=== PATIENT | female | born 1995 | race Caucasian/White ===

== ENCOUNTER 2016-10-11 16:54 | Emergency (ER) | payer MEDICAID ==
[~2016-10-11] VITALS: Ht 144.8 cm; Wt 54.4 kg
[~2016-10-11 16:54] MED LIST: PNV91TAB3 PO; PREN-51 PO
--- OUTSIDE RECORDS SUMMARY | 2016-10-11 17:00 | XMS REPORT | Continuity of Care Document ---
Author Author [facility] Organization [facility] Address Unknown Phone Unavailable Care Team Providers Care Sorority Supervisor Name Role Phone NO, LOCAL PHYSICIAN PCP Unavailable Insurance Providers Payer Name Policy Number Subscriber Name Relationship [facility] [employer] [id number] Luís Richter 18 Self / Same As Patient Advance Directives Directive Response Recorded Date/Time Advance Directives No 01/08/16 12:10pm Health Care Power of Concrete Pointer No 01/08/16 12:10pm Organ Donor Yes 01/08/16 12:10pm Resuscitation Status Full Code 01/08/16 12:10pm Chief Complaint and Reason for Visit Chief Complaint SEVERE MYALGIA LEUKOCYTOSIS RASH VOMITING FREQUENT Reason for Visit Leukocytosis Rash Vomiting diffuse myalgia Problems Active Problems Medical Problem Onset Date Status Leukocytosis Unknown Acute Unknown Acute Rash Unknown Acute Vomiting Unknown Acute diffuse myalgia Unknown Acute Medications Current Home Medications Medication Dose Units Route Directions Days/Qty Instructions Start Date Pnv95/Ferrous Fumarate/Fa 1 Each 1 Tab Oral Daily 01/08/16 Past Home Medications Medication Directions Ordered Status Vit #76/Iron,Carb/Fa 1 Each Tablet, 1 Each Oral Daily 01/08/16 Discontinued Social History Social History Problem Response Recorded Date/Time Alcohol Use Denies Use 01/08/2016 12:10pm Recreational Drug Use No 01/08/2016 12:10pm Recent Foreign Travel No 01/08/2016 12:10pm Recent Infectious Disease Exposure No 01/08/2016 12:10pm Hospitalization with Isolation Denies 01/09/2016 3:49pm Smoking Status Never a Smoker 01/08/2016 12:10pm Query Response Start Date Stop Date Smoking Status Never a Smoker Hospital Discharge Instructions Patient Instructions Physician Instructions Plan of Care/Instructions/FU: Increase fluid intake Use Tylenol 650 every 4 hours as needed for pain You may try heat or cold in the area of the pelvis to see if there is any value in pain relief Activity as Tolerated: Yes Goal: Reduction of pain Discharge Diet: No Restrictions Reschedule appointment with Dr. Obi Mack Care Plan Patient Instructions:: Increase fluid intakeUse Tylenol 650 every 4 hours as needed for painYou may try heat or cold in the area of the pelvis to see if there is anyvalue in pain relief Goal:: Reduction of pain Plan of Care Discharge Date 01/09/16 3:30pm Disposition 09 ADMITTED INPATIENT Instructions/Education Provided Dehydration (DC) Leukocytosis (DC) Forms Provided PDI Medical Prescriptions See Medication Section Referrals (Unspecified) - Reason(s) for Referral: follow up with Dr. Mack when discharged Care Plan and Goals See Discharge Instructions Section Functional Status Query Response Date Recorded Patient Orientation Person Place Time Situation Eyes Open January 09, 2016 3:49pm Allergies, Adverse Reactions, Alerts Allergen Type Severity Reaction Status Last Updated Penicillins ([id number]) Allergy Unknown Active 01/08/16 Doxycycline Allergy Unknown Active 01/08/16 Immunizations Name Given Type Hepatitis A Yes Historical Hepatitis B Yes Historical Tetanus Booster (TDap) Less than 5yrs Historical Vital Signs Acute Vital Signs Vital Response Date/Time Temperature (Fahrenheit) 98.2 degrees F (97.6 - 99.5) 01/09/2016 2:00pm Temperature (Calculated Celsius) 36.24625 degrees C (36.4 - 37.5) 01/09/2016 2:00pm Temperature Source Temporal 01/09/2016 2:00pm Pulse Rate (adult) 97 bpm (60 - 90) 01/09/2016 2:00pm Respiratory Rate 16 bpm (12 - 24) 01/09/2016 2:00pm O2 Sat by Pulse Oximetry 99 % (88 - 100) 01/09/2016 2:00pm Blood Pressure 110/58 mm Hg 01/09/2016 2:00pm Blood Pressure Mean 75 mm Hg 01/09/2016 2:00pm Pain Pain Intensity 2 01/09/2016 2:00pm Height (Feet) 4 feet 01/08/2016 12:10pm Height (Inches) 11.00 inches 01/08/2016 12:10pm Height (Calculated Centimeters) 149.920425 cm 01/08/2016 12:10pm Weight (Pounds) 112 pounds 01/08/2016 12:10pm Weight (Ounces) 6.0 oz 01/08/2016 12:10pm Weight (Calculated Grams) 37403.443 gm 01/08/2016 12:10pm Weight (Calculated Kilograms) 50.569241 kilograms 01/08/2016 12:10pm Calculated BMI 22.7 01/08/2016 12:10pm Results Laboratory Results Test Name Result Units Flags Reference Collection Date/Time Result Date/ Time Comments White Blood Count 14.6 10^3/uL H 4.3-11.0 01/09/2016 4:01/09/2016 5: 41am Red Blood Count 3.92 10^6/uL L 4.35-5.85 01/09/2016 4:01/09/2016 5: 41am Hemoglobin 12.2 G/DL 11.5-16.0 01/09/2016 4:01/09/2016 5:41am Hematocrit 35 % 35-52 01/09/2016 4:01/09/2016 5:41am Mean Corpuscular Volume 88 FL 80-99 01/09/2016 4:01/09/2016 5: 41am Mean Corpuscular Hemoglobin 31 PG 25-34 01/09/2016 4:01/09/2016 5: 41am Mean Corpuscular Hemoglobin Concent 35 G/DL 32-36 01/09/2016 4: 5:41am Red Cell Distribution Width 12.1 % 10.0-14.5 01/09/2016 4:2015 5:41am Platelet Count 230 10^3/uL 130-400 01/09/2016 4:01/09/2016 5:41am Mean Platelet Volume 10.0 FL 7.4-10.4 01/09/2016 4:01/09/2016 5: 41am Neutrophils (%) (Auto) 88 % H 42-75 01/09/2016 4:01/09/2016 5:41am Lymphocytes (%) (Auto) 7 % L 12-44 01/09/2016 4:01/09/2016 5:41am Monocytes (%) (Auto) 2 % 0-12 01/09/2016 4:01/09/2016 5:41am Eosinophils (%) (Auto) 3 % 0-10 01/09/2016 4:01/09/2016 5:41am Basophils (%) (Auto) 0 % 0-10 01/09/2016 4:01/09/2016 5:41am Neutrophils # (Auto) 12.8 X 10^3 H 1.8-7.8 01/09/2016 4:01/09/2016 5 :41am Lymphocytes # (Auto) 1.0 X 10^3 1.0-4.0 01/09/2016 4:01/09/2016 5: 41am Monocytes # (Auto) 0.3 X 10^3 0.0-1.0 01/09/2016 4:01/09/2016 5: 41am Eosinophils # (Auto) 0.4 10^3/uL H 0.0-0.3 01/09/2016 4:01/09/2016 5 :41am Basophils # (Auto) 0.0 10^3/uL 0.0-0.1 01/09/2016 4:01/09/2016 5: 41am Neutrophils % (Manual) 88 % 01/08/2016 9:00am 01/08/2016 9:36am Band Neutrophils 10 % 01/08/2016 9:00am 01/08/2016 9:36am Lymphocytes % (Manual) 1 % 01/08/2016 9:00am 01/08/2016 9:36am Monocytes % (Manual) 1 % 01/08/2016 9:00am 01/08/2016 9:36am Eosinophils % (Manual) 0 % 01/08/2016 9:00am 01/08/2016 9:36am Basophils % (Manual) 0 % 01/08/2016 9:00am 01/08/2016 9:36am Blood Morphology Comment NORMAL 01/08/2016 9:00am 01/08/2016 9: 36am Erythrocyte Sedimentation Rate 12 MM/HR 0-20 01/08/2016 9:00am 2015 9:40am Urine Color YELLOW 01/08/2016 8:55am 01/08/2016 9:21am Urine Clarity CLEAR 01/08/2016 8:55am 01/08/2016 9:21am Urine pH 7 5-9 01/08/2016 8:55am 01/08/2016 9:21am Urine Specific [place] 1.010 * 1.016-1.022 01/08/2016 8:55am 2015 9:21am Urine Protein NEGATIVE NEGATIVE 01/08/2016 8:55am 01/08/2016 9:21am Urine Glucose (UA) NEGATIVE NEGATIVE 01/08/2016 8:55am 01/08/2016 9: 21am Urine RBC (Auto) NEGATIVE NEGATIVE 01/08/2016 8:55am 01/08/2016 9: 21am Urine Ketones NEGATIVE NEGATIVE 01/08/2016 8:55am 01/08/2016 9:21am Urine Nitrite NEGATIVE NEGATIVE 01/08/2016 8:55am 01/08/2016 9:21am Urine Bilirubin NEGATIVE NEGATIVE 01/08/2016 8:55am 01/08/2016 9: 21am Urine Urobilinogen NORMAL MG/DL NORMAL 01/08/2016 8:55am 01/08/2016 9: 21am Urine Leukocyte Esterase NEGATIVE NEGATIVE 01/08/2016 8:55am 2015 9:21am Urine RBC NONE /HPF 01/08/2016 8:55am 01/08/2016 9:21am Urine WBC 2-5 /HPF 01/08/2016 8:55am 01/08/2016 9:21am Urine Bacteria NEGATIVE /HPF 01/08/2016 8:55am 01/08/2016 9:21am Urine Squamous Epithelial Cells 2-5 /HPF 01/08/2016 8:55am 2015 9:21am Urine Crystals NONE /LPF 01/08/2016 8:55am 01/08/2016 9:21am Urine Casts NONE /LPF 01/08/2016 8:55am 01/08/2016 9:21am Urine Mucus NEGATIVE /LPF 01/08/2016 8:55am 01/08/2016 9:21am Urine Culture Indicated NO 01/08/2016 8:55am 01/08/2016 9:21am Sodium Level 137 MMOL/L 135-145 01/08/2016 9:00am 01/08/2016 9:59am Potassium Level 3.7 MMOL/L 3.6-5.0 01/08/2016 9:00am 01/08/2016 9:59am Chloride Level 101 MMOL/L 98-107 01/08/2016 9:00am 01/08/2016 9:59am Carbon Dioxide Level 23 MMOL/L 21-32 01/08/2016 9:00am 01/08/2016 9: 59am Anion Gap 13 MMOL/L 5-14 01/08/2016 9:00am 01/08/2016 9:59am Blood Urea Nitrogen 4 MG/DL L 7-18 01/08/2016 9:00am 01/08/2016 9:59am Creatinine 0.64 MG/DL 0.60-1.30 01/08/2016 9:00am 01/08/2016 9:59am BUN/Creatinine Ratio 6 01/08/2016 9:00am 01/08/2016 9:59am Estimat Glomerular Filtration Rate > 60 01/08/2016 9:00am 2015 9:59am GFR INTERPRETIVE DATA UNITS FOR ESTIMATED GFR (eGFR): mL/min/1.73 M2 REFERENCE RANGE FOR ESTIMATED GFR (eGFR) eGFR NORMAL eGFR >60 MODERATELY DECREASED eGFR 30-59 SEVERLY DECREASED eGFR 15-29 KIDNEY FAILURE <15 (OR DIALYSIS) Glucose Level 131 MG/DL H 70-105 01/08/2016 9:00am 01/08/2016 9:59am Calcium Level 9.5 MG/DL 8.5-10.1 01/08/2016 9:00am 01/08/2016 9:59am Magnesium Level 2.0 MG/DL 1.8-2.4 01/08/2016 9:00am 01/08/2016 9:59am Total Bilirubin 0.6 MG/DL 0.1-1.0 01/08/2016 9:00am 01/08/2016 9:59am Alkaline Phosphatase 93 U/L 40-136 01/08/2016 9:00am 01/08/2016 9:59am Aspartate Amino Transf (AST/SGOT) 14 U/L 5-34 01/08/2016 9:00am 2015 9:59am Alanine Aminotransferase (ALT/SGPT) 13 U/L 0-55 01/08/2016 9:00am 01/07 9:59am Total Creatine Kinase 21 U/L L 29-168 01/09/2016 4:25am 01/09/2016 5: 43am Total Protein 7.3 G/DL 6.4-8.2 01/08/2016 9:00am 01/08/2016 9:59am Albumin 4.4 G/DL 3.2-4.5 01/08/2016 9:00am 01/08/2016 9:59am C-Reactive Protein High Sensitivity 9.03 MG/DL H 0.00-0.50 01/08/2016 9: 00am 01/08/2016 9:59am Group A Streptococcus Screen NEGATIVE NEGATIVE 01/08/2016 8:45am 9:00am Acetaminophen Screen POSITIVE * NEGATIVE 01/08/2016 8:55am 01/08/2016 10:42am APAP=ACETAMINOPHEN/PARACETAMOL [place] Antibody <1:20 01/08/2016 9:00am 01/09/2016 8:53am Interpretive criteria: <1:20 Negative 1:20 - 1:80 Equivocal >or=1:160 Positive Additional interpretive data can be seen online at: [email or web address] Enter test number: [id number] Test performed at [facility], [place]# [id number] Microbiology Results Procedure Source Result Collection Date/Time Result Date/Time Throat Culture Throat No Beta Strep isolated 01/08/2016 8:45am 01/09/2016 8:41am Blood Culture Peripheral, Lt Ac No growth 01/08/2016 9:35am 01/09/2016 1: 16pm Blood Culture Peripheral, Rt Ac No growth 01/08/2016 10:05am 01/09/2016 1: 16pm Procedures No known history of procedures. Encounters Encounter Location Arrival/Admit Date Discharge/Depart Date Attending Provider Discharged Inpatient [facility] 01/08/16 11:32am 3:30pm ZONIA CAVAZOS MD Recent Diagnosis Leukocytosis Rash Vomiting diffuse myalgia
[2016-10-11] MEDS ORDERED: SERT25TA PO (17:40)
--- NOTE | 2016-10-11 18:10 | ED GI ---
General Chief Complaint: Abdominal/GI Problems Stated Complaint: RECTUM BLEEDING/V/D Nursing Triage Note: pt c/o abd pain with diarrhea starting yesterday. vomiting with blood in stools today. she was seen [facility] this morning et dx gi virus. did not fill zofran. awoke feeling worse, so she came to our er. reports pain radiates to back. Sepsis Screen: No Definite Risk Source of Information: Patient Exam Limitations: No Limitations History of Present Illness Time Seen By Provider: 18:10 Initial Comments 20-year-old female patient presents to the emergency department complains of generalized abdominal pain and diarrhea beginning yesterday. Patient reports approximately 10 watery stools daily with last stool having blood in it. Patient was seen at [facility] emergency department this a.m. and given Zofran for a viral gastroenteritis. Patient states she has not filled the Zofran because "I didn't feel like they were taking me seriously." Patient reports taking a nap this afternoon and waking with vomiting. Came directly to the emergency department. Reports pain now radiates from the abdomen to the bilateral low back. Reports had similar symptoms approximately one week ago. Patient reports giving at the beginning of August and stopped breast feeding at the end of August. Has not had a period yet. Timing/Duration: 12-24 Hours, Getting Worse Severity/Quality: Aching, Cramping Location: Generalized Abdomen Radiation: Back Activities at Onset: None Modifying Factors: Worsens With Eating Allergies and Home Medications Allergies Coded Allergies: Penicillins (Verified Allergy, Unknown, 01/08/16) doxycycline (Verified Allergy, Unknown, 01/08/16) Home Medications Famotidine 20 Mg Tablet #20 20 MG PO BID Prescribed by: JYOTI HAYES on 10/11/162012 Ondansetron 8 Mg Tab.rapdis #10 8 MG PO Q6H PRN PRN NAUSEA/VOMITING Prescribed by: JYOTI HAYES on 10/11/162012 Sertraline HCl 25 Mg Tablet 25 MG PO DAILY (Reported) Review of Systems Constitutional: chillsNo diaphoresis, No dizziness, No fever, malaise EENTM: No Symptoms Reported Respiratory: No Symptoms Reported Cardiovascular: No Symptoms Reported Gastrointestinal: See HPIDenies Abdomen Distended, Abdominal PainDenies Constipated, DiarrheaDenies Difficulty Swallowing, Nausea Poor Appetite Poor Fluid Intake Rectal Bleeding Vomiting Genitourinary: Denies Burning, Denies Discharge, Denies Frequency, Denies Flank Pain, Denies Hematuria, Denies Pain Musculoskeletal: see HPI back pain Skin: no symptoms reported Psychiatric/Neurological: No Symptoms Reported All Other Systems Reviewed Negative Unless Noted: Yes (Negative excepted noted.) Past Ywfydmb-Tpcxsx-Vrkihf Hx Patient Social History Alcohol Use: Denies Use Recreational Drug Use: No Smoking Status: Never a Smoker Recent Foreign Travel: No Contact w/Someone Who Travel: No Recent Infectious Disease Expo: No Recent Hopitalizations: No Immunizations Up To Date Tetanus Booster (TDap): Less than 5yrs Date of Influenza Vaccine: Jun 18, 2016 Seasonal Allergies Seasonal Allergies: No Surgeries HX Surgeries: Yes (tubes in ears) Surgeries: Abdominal, Adenoidectomy, Ear Surgery Respiratory Hx Respiratory Disorders: No Cardiovascular Hx Cardiac Disorders: No Neurological Hx Neurological Disorders: No Reproductive System Hx Reproductive Disorders: Yes ("precancerous cells uterus") Genitourinary Hx Genitourinary Disorders: No Gastrointestinal Hx Gastrointestinal Disorders: No Musculoskeletal Hx Musculoskeletal Disorders: No Endocrine Hx Endocrine Disorders: Yes (gestational diabetes) HEENT HX ENT Disorders: No (hx tubes in ears as child) Cancer Hx Cancer: No Psychosocial Hx Psychiatric Problems: No Integumentary HX Skin/Integumentary Disorder: Yes (current rash on back/chest) Blood Transfusions Hx Blood Disorders: No Reviewed Nursing Assessment Reviewed/Agree w Nursing PMH: Yes Family Medical History Significant Family History: Cancer, Other Conditions/Hx Family Medial History: Cardiovascular disease 19 FATHER Diabetes mellitus 19 MOTHER (gestational dm) Neoplasm 19 MOTHER (cervical ca ) Psychosocial problem G8 BROTHER (2 brothers w/ autism) Visual disorder G8 BROTHER (brother blind ) Physical Exam Vital Signs VS - Last 72 Hours, by Label 10/11/16 10/11/16 17:20 20:47 Temp 97.9 Pulse 74 58 Resp 16 16 B/P 106/70 Pulse Ox 100 Capillary Refill : Less Than 3 Seconds General Appearance: WD/WN no apparent distress HEENT: PERRL/EOMI pharynx normal Neck: supple normal inspection Respiratory: lungs clear normal breath sounds no respiratory distress Cardiovascular: normal peripheral pulses regular rate, rhythm no edema no murmur Gastrointestinal: normal bowel sounds soft no organomegalyNo distended, guarding (generalized)No rebound, tenderness (generalized tenderness) Back: normal inspection no CVA tenderness Neurologic/Psychiatric: alert normal mood/affect oriented x 3 Skin: normal color warm/dry Progress/Results/Core Measures Results/Orders Lab Results Laboratory Tests Test 10/11/16 17:28 Range/Units Alanine Aminotransferase (ALT/SGPT) 45 0-55 U/L Albumin 4.3 3.2-4.5 G/DL Alkaline Phosphatase 87 40-136 U/L Anion Gap 10 5-14 MMOL/L Aspartate Amino Transf (AST/SGOT) 25 5-34 U/L BUN/Creatinine Ratio 14 Basophils # (Auto) 0.0 0.0-0.1 10^3/uL Basophils (%) (Auto) 0 0-10 % Blood Urea Nitrogen 11 7-18 MG/DL Calcium Level 8.8 8.5-10.1 MG/DL Carbon Dioxide Level 24 21-32 MMOL/L Chloride Level 106 98-107 MMOL/L Creatinine 0.76 0.60-1.30 MG/DL Eosinophils # (Auto) 0.2 0.0-0.3 10^3/uL Eosinophils (%) (Auto) 3 0-10 % Estimat Glomerular Filtration Rate > 60 Glucose Level 80 70-105 MG/DL Hematocrit 38 35-52 % Hemoglobin 12.8 11.5-16.0 G/DL Lipase 6 L 8-78 U/L Lymphocytes # (Auto) 1.1 1.0-4.0 X 10^3 Lymphocytes (%) (Auto) 17 12-44 % Mean Corpuscular Hemoglobin 28 25-34 PG Mean Corpuscular Hemoglobin Concent 33 32-36 G/DL Mean Corpuscular Volume 83 80-99 FL Mean Platelet Volume 10.8 H 7.4-10.4 FL Monocytes # (Auto) 0.4 0.0-1.0 X 10^3 Monocytes (%) (Auto) 6 0-12 % Neutrophils # (Auto) 4.7 1.8-7.8 X 10^3 Neutrophils (%) (Auto) 74 42-75 % Platelet Count 204 130-400 10^3/uL Potassium Level 3.3 L 3.6-5.0 MMOL/L Red Blood Count 4.59 4.35-5.85 10^6/uL Red Cell Distribution Width 14.7 H 10.0-14.5 % Sodium Level 140 135-145 MMOL/L Total Bilirubin 0.8 0.1-1.0 MG/DL Total Protein 6.7 6.4-8.2 G/DL White Blood Count 6.3 4.3-11.0 10^3/uL My Orders Orders-JYOTI HAYES Saline Lock/Iv-Start (10/11/16 18:28) Fecal Occult Bedside (10/11/16 18:28) Cbc With Automated Diff (10/11/16 18:28) Comprehensive Metabolic Panel (10/11/16 18:28) Lipase (10/11/16 18:28) Ns Iv 1000 Ml (Sodium Chloride 0.9%) (10/11/16 18:28) Ondansetron Injection (Zofran Injectio (10/11/16 18:30) Ketorolac Injection (Toradol Injection) (10/11/16 18:28) Ct Abdomen/Pelvis W (10/11/16 19:05) Iohexol Injection (Omnipaque 350 Mg/Ml 1 (10/11/16 19:30) Ns (Ivpb) (Sodium Chloride 0.9% Ivpb Bag (10/11/16 19:30) Medications Given in ED Current Medications Medications Dose Ordered Sig/Shelia Route Start Time Stop Time Status Last Admin Dose Admin Iohexol 100 ml ONCE ONCE IV 10/11/16 19:30 10/11/16 19:31 DC 10/11/16 19:28 100 ML Ondansetron HCl 4 mg ONCE ONCE IVP 10/11/16 18:30 10/11/16 18:31 DC 10/11/16 18:41 4 MG Sodium Chloride 100 ml ONCE ONCE IV 10/11/16 19:30 10/11/16 19:31 DC 10/11/16 19:28 80 ML Sodium Chloride 1,000 ml @ 0 mls/hr Q0M ONCE IV 10/11/16 18:28 10/11/16 18:29 DC 10/11/16 18:41 1,000 MLS/HR Vital Signs/I&O Vital Sign - Last 12Hours 10/11/16 10/11/16 17:20 20:47 Temp 97.9 Pulse 74 58 Resp 16 16 B/P 106/70 Pulse Ox 100 Blood Pressure Mean: 82 Point of Care Testing Urine -Bedside: Negative Diagnostic Imaging Diagonstic Imaging: CT Plain Films/CT/US/NM/MRI: abdomen, pelvis Comments FINDINGS: Included views of the lung bases are clear. CT abdomen: Normal appendix cannot be adequately identified, but there is no pericecal inflammation. Small bowel loops are nondistended. The kidneys, adrenal glands, pancreas, and liver have a normal appearance. The spleen is slightly enlarged, as it measures approximately 13.5 cm in length. No focal splenic lesions are identified. There is no loculated fluid collection, free fluid or free air within the abdomen. No abnormal mesenteric or retroperitoneal adenopathy is seen. Bony structures show no acute abnormalities. CT pelvis: Urinary bladder is grossly unremarkable. There is no loculated fluid collection, free fluid or free air. No abnormal lymph nodes are identified. Bilateral ovarian cysts are noted. Largest is on the left and measures 1.9 x 1.5 cm. Bony structures show no acute abnormalities. IMPRESSION: 1. Bilateral ovarian cysts. 2. Mild splenomegaly, but no focal splenic lesions. 3. No other acute abnormalities are seen within the abdomen or pelvis. Dictated by: Dictated on workstation # [id number] Reviewed: Reviewed by Me (radiology report reviewed by me) Departure Communication Progress Notes stool occult blood negative at the time of exam. Records from [facility] in [place] were reviewed with findings of a urinalysis showing negative nitrite, negative leukocytes, negative ketones, 0-2 white blood cells, with greater than 25 epithelial cells. WBC 11.0, HGB 14.5, PLT 216K, Na+ 141, K+ 4.3, bili 0.7, creat 0.59. Acute abdominal series normal chest xray with non-obstructive Bowel gas pattern. Laboratory and diagnostic findings discussed with the patient. Plan for discharge to home with oral Zofran. Patient reports feeling much better after IV fluids and medications in the emergency department. All return precautions were discussed with the patient as described in the discharge instructions of this report. Patient voices understanding and agrees with the treatment plan. Impression Impression: Primary Impression: Abdominal pain Qualified Code: R10.84 - Generalized abdominal pain Additional Impressions: Nausea, vomiting, and diarrhea Ovarian cyst Qualified Code: N83.201 - Unspecified ovarian cyst, right side Disposition: 01 HOME, SELF-CARE Condition: Improved Departure-Patient Inst. Decision time for Depature: 20:03 Referrals: NO,LOCAL PHYSICIAN (PCP/Family) Primary Care Physician Patient Instructions: Ovarian Cyst (DC), Diarrhea in Adolescents and Adults, Acute Abdomen (Belly Pain), Adult (DC) Add. Discharge Instructions: All discharge instructions reviewed with patient and/or family. Voiced understanding. Tylenol extra strength [id number] as directed for pain or fever. Ibuprofen 800 mg by mouth every 8 hours as needed for pain or fever. Fill the Zofran prescription as prescribed by [facility]. Nlcd-rsn-rjcnoeb Rolaids, Tums, Mylanta as instructed for nausea. Clear liquid diet until symptoms improve, then increase diet slowly to a low-fat, bland diet. Follow- up with your family practitioner in [place] early this week for recheck and possible need for upper and lower endoscopy. Call Friday morning for appointment time. Return to the emergency department for worsened pain, fever, vomiting, vomiting blood, black stools, rectal bleeding, difficulty with urination, or any other concerns. Scripts Ondansetron (Ondansetron Odt)8 Mg Tab.rapdis8 Mg PO Q6H PRN NAUSEA/VOMITING #10 TAB Ref 0 Prov:JYOTI HAYES 10/11/16 Famotidine (Pepcid)20 Mg [id number] Mg PO BID #20 TAB Ref 0 Prov:JYOTI HAYES 10/11/16 JYOTI HAYES Oct 11, 2016 18:10
[2016-10-11] MEDS ORDERED: KETOROLAC 30 MG/ML VIAL IVP STA (18:28)
[2016-10-11] MEDS ORDERED: NS IV 1000 ML 1,000 ML IV ONE (18:28)
[2016-10-11] MEDS ORDERED: ONDANSETRON 4 MG/2 ML (SDV) Z0FRAN IVP ONE (18:30)
[2016-10-11 18:35] LABS: BASOPHILS % (AUTO) 0 % (0-10); EOSINOPHILS # (AUTO) 0.2 10^3/uL (0.0-0.3); EOSINOPHILS % (AUTO) 3 % (0-10); LYMPHOCYTES # (AUTO) 1.1 X 10^3 (1.0-4.0); LYMPHOCYTES % (AUTO) 17 % (12-44); MEAN CORPUSCULAR HEMOGLOBIN 28 PG (25-34); MEAN CORPUSCULAR HGB CONC 33 G/DL (32-36); MEAN CORPUSCULAR VOLUME 83 FL (80-99); MEAN PLATELET VOLUME 10.8 FL (7.4-10.4); MONOCYTES # (AUTO) 0.4 X 10^3 (0.0-1.0); MONOCYTES % (AUTO) 6 % (0-12); NEUTROPHILS # (AUTO) 4.7 X 10^3 (1.8-7.8); NEUTROPHILS % (AUTO) 74 % (42-75); PLATELET COUNT 204 10^3/uL (130-400); RED BLOOD COUNT 4.59 10^6/uL (4.35-5.85); RED CELL DISTRIBUTION WIDTH 14.7 % (10.0-14.5); WHITE BLOOD COUNT 6.3 10^3/uL (4.3-11.0)
[2016-10-11 18:47] LABS: ALANINE AMINOTRANSFERASE 45 U/L (0-55); ALBUMIN 4.3 G/DL (3.2-4.5); ANION GAP 10 MMOL/L (5-14); ASPARTATE AMINO TRANSFERASE 25 U/L (5-34); BILIRUBIN,TOTAL 0.8 MG/DL (0.1-1.0); BLOOD UREA NITROGEN 11 MG/DL (7-18); BUN/CREATININE RATIO 14; CALCIUM 8.8 MG/DL (8.5-10.1); CARBON DIOXIDE 24 MMOL/L (21-32); CHLORIDE 106 MMOL/L (98-107); CREATININE SERUM 0.76 MG/DL (0.60-1.30); GFR ESTIMATED > 60; GLUCOSE 80 MG/DL (70-105); LIPASE 6 U/L (8-78); POTASSIUM 3.3 MMOL/L (3.6-5.0); SODIUM 140 MMOL/L (135-145); TOTAL PROTEIN 6.7 G/DL (6.4-8.2)
[2016-10-11] MEDS ORDERED: NS 100 ML (IVPB) BAG IV ONE (19:30)
[2016-10-11] MEDS ORDERED: IOHEXOL 350 MG/ML 100 ML (OMNIPAQUE 350) VIAL IV ONE (19:30)
--- NOTE | 2016-10-11 19:52 | Diagnostic Imaging Report ---
PROCEDURE: CT abdomen and pelvis with contrast. TECHNIQUE: Multiple contiguous axial images were obtained through the abdomen and pelvis after administration of intravenous contrast. INDICATION: Lower abdominal pain. Back pain. Diarrhea. COMPARISON: None FINDINGS: Included views of the lung bases are clear. CT abdomen: Normal appendix cannot be adequately identified, but there is no pericecal inflammation. Small bowel loops are nondistended. The kidneys, adrenal glands, pancreas, and liver have a normal appearance. The spleen is slightly enlarged, as it measures approximately 13.5 cm in length. No focal splenic lesions are identified. There is no loculated fluid collection, free fluid or free air within the abdomen. No abnormal mesenteric or retroperitoneal adenopathy is seen. Bony structures show no acute abnormalities. CT pelvis: Urinary bladder is grossly unremarkable. There is no loculated fluid collection, free fluid or free air. No abnormal lymph nodes are identified. Bilateral ovarian cysts are noted. Largest is on the left and measures 1.9 x 1.5 cm. Bony structures show no acute abnormalities. IMPRESSION: 1. Bilateral ovarian cysts. 2. Mild splenomegaly, but no focal splenic lesions. 3. No other acute abnormalities are seen within the abdomen or pelvis. Dictated by: Dictated on workstation # [id number]
[2016-10-11] MEDS ORDERED: FAMO-119 PO ×2 (20:06→20:13)
[2016-10-11] MEDS ORDERED: ONDA8TAB13 PO (20:13)
[2016-10-11 20:47] VITALS: BP 100/80
== END 2016-10-11 20:13 | disposition home or self-care (01) ==
LOC: EDUNIT# 16:54 → ER 16:56
DX: R11.2 Nausea with vomiting, unspecified (principal); R19.7 Diarrhea, unspecified; R10.13 Epigastric pain; N83.201 Unspecified ovarian cyst, right side; N83.202 Unspecified ovarian cyst, left side
CPT/HCPCS: 36415; 74177; 80053; 83690; 84703; 85025; 96361; 96374; 96375

== ENCOUNTER 2016-10-26 13:59 | Emergency (ER) | payer MEDICAID ==
[~2016-10-26] VITALS: Ht 149.9 cm; Wt 58.1 kg
[~2016-10-26 13:59] MED LIST changes: +FAMO-119 PO; +ONDA8TAB13 PO; +SERT25TA PO
--- OUTSIDE RECORDS SUMMARY | 2016-10-26 14:04 | XMS REPORT | Continuity of Care Document ---
Author Author [facility] Organization [facility] Address Unknown Phone Unavailable Care Team Providers Care Absorption Plant Operator Helper Name Role Phone NO, LOCAL PHYSICIAN PCP Unavailable Insurance Providers Payer Name Policy Number Subscriber Name Relationship [facility] [employer] [id number] Luís Richter 18 Self / Same As Patient Advance Directives Directive Response Recorded Date/Time Advance Directives No 01/08/16 12:10pm Health Care Power of Gutter Mouth Cutter No 01/08/16 12:10pm Organ Donor Yes 01/08/16 [...] Type Severity Reaction Status Last Updated Penicillins ([id number]) Allergy Unknown Active 01/08/16 Doxycycline Allergy Unknown Active 01/08/16 Immunizations Name Given Type Hepatitis A Yes Historical Hepatitis B Yes Historical Tetanus Booster (TDap) Less than 5yrs Historical Vital Signs Acute Vital Signs Vital Response Date/Time Temperature (Fahrenheit) 98.2 degrees F (97.6 - 99.5) 01/09/2016 2:00pm Temperature (Calculated Celsius) 36.85236 degrees C (36.4 - 37.5) 01/09/2016 2:00pm [...] 11.00 inches 01/08/2016 12:10pm Height (Calculated Centimeters) 149.077351 cm 01/08/2016 12:10pm Weight (Pounds) 112 pounds 01/08/2016 12:10pm Weight (Ounces) 6.0 oz 01/08/2016 12:10pm Weight (Calculated Grams) 86791.443 gm 01/08/2016 12:10pm Weight (Calculated Kilograms) 50.140666 kilograms 01/08/2016 12:10pm Calculated BMI 22.7 01/08/2016 [...] 5-9 01/08/2016 8:55am 01/08/2016 9:21am Urine Specific [place] 1.010 * 1.016-1.022 01/08/2016 8:55am 2015 9:21am [...] interpretive data can be seen online at: [email or web address] test number: [id number] Test performed at [facility], [place]# [id number] Microbiology Results Procedure Source Result Collection Date/Time Result Date/Time Throat Culture Throat No Beta Strep isolated 01/08/2016 8:45am 01/09/2016 8:41am Blood Culture Peripheral, Lt Ac No growth 01/08/2016 9:35am 01/09/2016 1: 16pm Blood Culture Peripheral, Rt Ac No growth 01/08/2016 10:05am 01/09/2016 1: 16pm Procedures No known history of procedures. Encounters Encounter Location Arrival/Admit Date Discharge/Depart Date Attending Provider Discharged Inpatient [facility] 01/08/16 11:32am 3:30pm ZONIA CAVAZOS MD Recent Diagnosis Leukocytosis Rash Vomiting diffuse myalgia
[2016-10-26] MEDS ORDERED: KETOROLAC 30 MG/ML VIAL IVP STA (14:37)
[2016-10-26] MEDS ORDERED: NS IV 1000 ML 1,000 ML IV ONE (14:37)
[2016-10-26 15:17] LABS: BASOPHILS % (AUTO) 1 % (0-10); EOSINOPHILS # (AUTO) 0.2 10^3/uL (0.0-0.3); EOSINOPHILS % (AUTO) 2 % (0-10); LYMPHOCYTES # (AUTO) 1.6 X 10^3 (1.0-4.0); LYMPHOCYTES % (AUTO) 20 % (12-44); MEAN CORPUSCULAR HEMOGLOBIN 27 PG (25-34); MEAN CORPUSCULAR HGB CONC 34 G/DL (32-36); MEAN CORPUSCULAR VOLUME 81 FL (80-99); MEAN PLATELET VOLUME 10.1 FL (7.4-10.4); MONOCYTES # (AUTO) 0.4 X 10^3 (0.0-1.0); MONOCYTES % (AUTO) 5 % (0-12); NEUTROPHILS # (AUTO) 5.8 X 10^3 (1.8-7.8); NEUTROPHILS % (AUTO) 72 % (42-75); PLATELET COUNT 278 10^3/uL (130-400); RED BLOOD COUNT 5.46 10^6/uL (4.35-5.85); RED CELL DISTRIBUTION WIDTH 14.1 % (10.0-14.5); WHITE BLOOD COUNT 8.1 10^3/uL (4.3-11.0)
--- NOTE | 2016-10-26 15:21 | Diagnostic Imaging Report ---
INDICATION: Headache and fever. COMPARISON: None FINDINGS: 2 views of the chest are obtained. Heart size is normal. The pulmonary vessels appear unremarkable. There is no pneumothorax, mediastinal widening or pleural fluid demonstrated. The lungs are clear. The osseous structures appear unremarkable. IMPRESSION: Negative chest. Dictated by: Dictated on workstation # [id number]
[2016-10-26 15:39] LABS: ALANINE AMINOTRANSFERASE 36 U/L (0-55); ALBUMIN 5.1 G/DL (3.2-4.5); ANION GAP 12 MMOL/L (5-14); ASPARTATE AMINO TRANSFERASE 24 U/L (5-34); BILIRUBIN,TOTAL 0.5 MG/DL (0.1-1.0); BLOOD UREA NITROGEN 10 MG/DL (7-18); BUN/CREATININE RATIO 14; CARBON DIOXIDE 23 MMOL/L (21-32); CHLORIDE 106 MMOL/L (98-107); CREATININE SERUM 0.72 MG/DL (0.60-1.30); GFR ESTIMATED > 60; GLUCOSE 98 MG/DL (70-105); MAGNESIUM 2.4 MG/DL (1.8-2.4); POTASSIUM 4.3 MMOL/L (3.6-5.0); SODIUM 141 MMOL/L (135-145); TOTAL PROTEIN 7.9 G/DL (6.4-8.2); hs C REACTIVE PROTEIN 0.15 MG/DL (0.00-0.50)
[2016-10-26 16:51] LABS: BILIRUBIN,URINE NEGATIVE (NEGATIVE); KETONES,URINE NEGATIVE (NEGATIVE); LEUKOCYTE ESTERASE ,URINE NEGATIVE (NEGATIVE); NITRITE,URINE NEGATIVE (NEGATIVE); PH,URINE 7 (5-9); PROTEIN,URINE NEGATIVE (NEGATIVE); UROBILINOGEN,URINE NORMAL (NORMAL)
--- NOTE | 2016-10-26 17:09 | ED General ---
General Chief Complaint: General Problems/Pain Stated Complaint: SPINAL INFECTION Nursing Triage Note: PT C/O FEVER, HEADACHE, STIFF NECK, CONFUSION AND DIFFICULTY WALKIGN FOR 2 DAYS. PT REPORTS HAVING AN IUD PLACED ON 10/09/16, PT HAD COMPLICATIONS AND WAS ADMITTED TO [facility] FOR INFECTION AND DC ON 10/24/16. PT REPORTS THAT SHE IS HAVING BLEEDING AND DISCHARGE TODAY. Nursing Sepsis Screen: No Definite Risk Source of Information: Patient Exam Limitations: No Limitations History of Present Illness Time Seen by Provider: 16:30 Initial Comments Here with a report of concerns of infection. She has a long story related to IUD placement and removal in which she had her IUD placed on 2216. Ultimately is removed about a week ago due to infection and pain concerns. She is apparently in the hospital at [facility] with these concerns. She in the interim had an ovarian cyst that ruptured. She is very concerned that she has systemic infection or spinal infection because she has a headache. She is on Percocet which she is making her loopy. She reports fever. She reports continued vaginal discharge. She is not currently on antibiotics. She states that she received them all by IV bag while she was in the hospital. She reported a fever of 103 today. She had normal temperature on triage exam. Timing/Duration: 1 Week, Getting Worse Severity: Moderate Associated Systoms: No Chest Pain, No Cough, Fever/ChillsNo Nausea/Vomiting, No Shortness of Air, No Weakness Allergies and Home Medications Allergies Coded Allergies: Penicillins (Verified Allergy, Unknown, 01/08/16) doxycycline (Verified Allergy, Unknown, 01/08/16) Home Medications Famotidine 20 Mg Tablet #20 20 MG PO BID Prescribed by: JYOTI HAYES on 10/11/162012 Metronidazole 500 Mg Tablet #14 500 MG PO BID Prescribed by: NOLAN BLOOD on 10/26/161813 Ondansetron 8 Mg Tab.rapdis #10 8 MG PO Q6H PRN PRN NAUSEA/VOMITING Prescribed by: JYOTI HAYES on 10/11/162012 Sertraline HCl 25 Mg Tablet 25 MG PO DAILY (Reported) Constitutional: see HPI fever malaise EENTM: no symptoms reportedNo nose congestion, No throat pain Respiratory: no symptoms reportedNo cough, No short of breath Cardiovascular: no symptoms reported Gastrointestinal: abdominal pain (bilateral lower quadrants and suprapubic)No nausea, No vomiting Genitourinary: see HPINo dysuria, pain Musculoskeletal: no symptoms reported Skin: no symptoms reported Psychiatric/Neurological: No Symptoms Reported Hematologic/Lymphatic: No Symptoms Reported All Other Systems Reviewed Negative Unless Noted: Yes Past Hjrsgot-Lhafyt-Nnbblq Hx Patient Social History Alcohol Use: Denies Use Recreational Drug Use: No Smoking Status: Never a Smoker Recent Foreign Travel: No Contact w/Someone Who Travel: No Recent Infectious Disease Expo: No Recent Hopitalizations: No Immunizations Up To Date Tetanus Booster (TDap): Less than 5yrs Date of Influenza Vaccine: Jun 18, 2016 Seasonal Allergies Seasonal Allergies: No Surgeries HX Surgeries: Yes (tubes in ears) Surgeries: Abdominal, Adenoidectomy, Ear Surgery Respiratory Hx Respiratory Disorders: No Cardiovascular Hx Cardiac Disorders: No Neurological Hx Neurological Disorders: No Reproductive System Hx Reproductive Disorders: Yes ("precancerous cells uterus") Genitourinary Hx Genitourinary Disorders: No Gastrointestinal Hx Gastrointestinal Disorders: No Musculoskeletal Hx Musculoskeletal Disorders: No Endocrine Hx Endocrine Disorders: Yes (gestational diabetes) HEENT HX ENT Disorders: No (hx tubes in ears as child) Cancer Hx Cancer: No Psychosocial Hx Psychiatric Problems: No Integumentary HX Skin/Integumentary Disorder: Yes (current rash on back/chest) Blood Transfusions Hx Blood Disorders: No Reviewed Nursing Assessment Reviewed/Agree w Nursing PMH: Yes Family Medical History Significant Family History: Cancer, Other Conditions/Hx Family Medial History: Cardiovascular disease 19 FATHER Diabetes mellitus 19 MOTHER (gestational dm) Neoplasm 19 MOTHER (cervical ca ) Psychosocial problem G8 BROTHER (2 brothers w/ autism) Visual disorder G8 BROTHER (brother blind ) Physical Exam Vital Signs Vital Sign - Last 12Hours 10/26/16 14:40 Temp 98.7 Pulse 79 Resp 18 B/P 126/84 Pulse Ox 96 O2 Delivery Room Air Capillary Refill : Less Than 3 Seconds General Appearance: WD/WN Anxious HEENT: PERRL/EOMI Pharynx Normal Neck: Non Tender Supple Respiratory: Lungs Clear Normal Breath Sounds Cardiovascular: Regular Rate, Rhythm No Murmur Gastrointestinal: SoftNo Distended, Tenderness (suprapubic and bilateral lower quadrant) Back: Normal Inspection No CVA Tenderness No Vertebral Tenderness Extremity: Non Tender No Calf Tenderness Neurologic/Psychiatric: Alert Oriented x3 Skin: Normal Color Warm/Dry Progress/Results/Core Measures Results/Orders Lab Results Laboratory Tests Test 10/26/16 15:05 10/26/16 16:42 Range/Units Alanine Aminotransferase (ALT/SGPT) 36 0-55 U/L Albumin 5.1 H 3.2-4.5 G/DL Alkaline Phosphatase 90 40-136 U/L Anion Gap 12 5-14 MMOL/L Aspartate Amino Transf (AST/SGOT) 24 5-34 U/L BUN/Creatinine Ratio 14 Basophils # (Auto) 0.0 0.0-0.1 10^3/uL Basophils (%) (Auto) 1 0-10 % Blood Urea Nitrogen 10 7-18 MG/DL C-Reactive Protein High Sensitivity 0.15 0.00-0.50 MG/DL Calcium Level 10.0 8.5-10.1 MG/DL Carbon Dioxide Level 23 21-32 MMOL/L Chloride Level 106 98-107 MMOL/L Creatinine 0.72 0.60-1.30 MG/DL Eosinophils # (Auto) 0.2 0.0-0.3 10^3/uL Eosinophils (%) (Auto) 2 0-10 % Estimat Glomerular Filtration Rate > 60 Glucose Level 98 70-105 MG/DL Hematocrit 44 35-52 % Hemoglobin 14.9 11.5-16.0 G/DL Lactic Acid Level 0.53 0.50-2.00 MMOL/L Lymphocytes # (Auto) 1.6 1.0-4.0 X 10^3 Lymphocytes (%) (Auto) 20 12-44 % Magnesium Level 2.4 1.8-2.4 MG/DL Mean Corpuscular Hemoglobin 27 25-34 PG Mean Corpuscular Hemoglobin Concent 34 32-36 G/DL Mean Corpuscular Volume 81 80-99 FL Mean Platelet Volume 10.1 7.4-10.4 FL Monocytes # (Auto) 0.4 0.0-1.0 X 10^3 Monocytes (%) (Auto) 5 0-12 % Neutrophils # (Auto) 5.8 1.8-7.8 X 10^3 Neutrophils (%) (Auto) 72 42-75 % Platelet Count 278 130-400 10^3/uL Potassium Level 4.3 3.6-5.0 MMOL/L Red Blood Count 5.46 4.35-5.85 10^6/uL Red Cell Distribution Width 14.1 10.0-14.5 % Sodium Level 141 135-145 MMOL/L Total Bilirubin 0.5 0.1-1.0 MG/DL Total Protein 7.9 6.4-8.2 G/DL White Blood Count 8.1 4.3-11.0 10^3/uL Urine Bacteria NEGATIVE /HPF Urine Bilirubin NEGATIVE NEGATIVE Urine Casts NONE /LPF Urine Clarity CLEAR Urine Color YELLOW Urine Crystals NONE /LPF Urine Culture Indicated NO Urine Glucose (UA) NEGATIVE NEGATIVE Urine Ketones NEGATIVE NEGATIVE Urine Leukocyte Esterase NEGATIVE NEGATIVE Urine Mucus NEGATIVE /LPF Urine Nitrite NEGATIVE NEGATIVE Urine Protein NEGATIVE NEGATIVE Urine RBC NONE /HPF Urine RBC (Auto) 4+ H NEGATIVE Urine Specific [place] 1.010 L 1.016-1.022 Urine Squamous Epithelial Cells 5-10 /HPF Urine Urobilinogen NORMAL NORMAL MG/DL Urine WBC NONE /HPF Urine pH 7 5-9 Micro Results Microbiology 10/26/16 Influenza Types A,B Antigen (ALEX) - Final, Complete My Orders Orders-NOLAN BLOOD MD Cbc With Automated Diff (10/26/16 14:37) Comprehensive Metabolic Panel (10/26/16 14:37) Hs C Reactive Protein (10/26/16 14:37) Magnesium (10/26/16 14:37) Ua Culture If Indicated (10/26/16 14:37) Blood Culture (10/26/16 14:37) Influenza A And B Antigens (10/26/16 14:37) Saline Lock/Iv-Start (10/26/16 14:37) Ns Iv 1000 Ml (Sodium Chloride 0.9%) (10/26/16 14:37) Chest Pa/Lat (2 View) (10/26/16 14:37) Lactic Acid Analyzer (10/26/16 14:37) Ketorolac Injection (Toradol Injection) (10/26/16 14:37) Ct Abdomen/Pelvis W (10/26/16 17:02) Iohexol Injection (Omnipaque 350 Mg/Ml 1 (10/26/16 17:15) Ns (Ivpb) (Sodium Chloride 0.9% Ivpb Bag (10/26/16 17:15) Medications Given in ED Current Medications Medications Dose Ordered Sig/Shelia Route Start Time Stop Time Status Last Admin Dose Admin Iohexol 100 ml ONCE ONCE IV 10/26/16 17:15 10/26/16 17:16 UNV 10/26/16 17:16 100 ML Sodium Chloride 100 ml ONCE ONCE IV 10/26/16 17:15 10/26/16 17:16 UNV 10/26/16 17:16 80 ML Sodium Chloride 1,000 ml @ 0 mls/hr Q0M ONCE IV 10/26/16 14:37 10/26/16 14:40 DC 10/26/16 15:15 0 MLS/HR Vital Signs/I&O Vital Sign - Last 12Hours 10/26/16 14:40 Temp 98.7 Pulse 79 Resp 18 B/P 126/84 Pulse Ox 96 O2 Delivery Room Air Blood Pressure Mean: 98 Progress Note : Progress Note Seen and evaluated. IV, labs, UA, normal saline 1 L bolus and Toradol 30 mg IV ordered. Monitor patient. 1700: No abnormalities on lab or UA. We will get CT abdomen pelvis due to history of IUD that may have gone through uterine wall per patient report. Patient is much more comfortable after Toradol was given and IV fluids complete. 1808: CT abdomen and pelvis completed and results reviewed with patient. Overall evaluation no significant findings noted. Patient comforted by this. She was informed of the constipation. Discharged home with return precautions. Patient verbalize understanding instructions and agreement with plan. Due to reported findings of vaginal discharge, we will initiate Flagyl treatment and she will follow up with her doctor. She would like to avoid another pelvic exam at this point if she could. This seems reasonable. Diagnostic Imaging Diagonstic Imaging: CT Plain Films/CT/US/NM/MRI: abdomen, pelvis Comments [facility]. [place], [place] NAME: LUÍS RICHTER [facility] REC#: [id number] PT STATUS: REG ER : 1995 PHYSICIAN: NOLAN BLOOD MD ADMIT DATE: 10/26/16/ER Draft Date of Exam:10/26/16 CT ABDOMEN/PELVIS W Procedure: CT abdomen and pelvis with contrast. Technique: Multiple contiguous axial images were obtained through the abdomen and pelvis after administration of intravenous contrast. Indication: Generalized lower abdominal pain, greatest within the right pelvis. History of recent IUD placement and subsequent removal. Comparison: 10/11/2016. Discussion: The visualized lung bases are well-aerated. Normal heart size. No pleural or pericardial fluid. The spleen is normal in size on today's exam, measuring 12.2 cm. The liver, gallbladder, pancreas, stomach, adrenal glands, kidneys, uterus and urinary bladder are unremarkable. Normal follicular activity is demonstrated within the bilateral ovaries. No ascites or pathologically enlarged lymph nodes are identified. The abdominal aorta is normal in caliber. Mild constipation is noted. No abnormal small bowel loops. No obstruction, pneumatosis or pneumoperitoneum. The appendix is not seen with certainty though no secondary inflammatory changes are identified. No osseous abnormality is identified. Impression: 1. Mild constipation. 2. The appendix is not identified though no secondary inflammatory changes are present. No other acute abnormality identified. Dictated on workstation # [id number] Dict: 10/26/16 174 Trans: 10/26/16 174 [facility] [id number] Interpreted by: RANJIT PASTRANA MD Electronically signed by: [facility] Imaging: Xray Plain Films/CT/US/NM/MRI: chest Comments NAME: LUÍS RICHTER [facility] REC#: [id number] PT STATUS: REG ER : 1995 PHYSICIAN: NOLAN BLOOD MD ADMIT DATE: 10/26/16/ER Signed Date of Exam: 10/26/16 CHEST PA/LAT (2 VIEW) INDICATION: Headache and fever. COMPARISON: None FINDINGS: 2 views of the chest are obtained. Heart size is normal. The pulmonary vessels appear unremarkable. There is no pneumothorax, mediastinal widening or pleural fluid demonstrated. The lungs are clear. The osseous structures appear unremarkable. IMPRESSION: Negative chest. Dictated by: Dictated on workstation # [id number] Dict: 10/26/16 1516 Trans: 10/26/16 1530 [id number] Interpreted by: JAYLAN CANTU DO Electronically signed by:JAYLAN CANTU DO 10/26/16 1532 Departure Impression Impression: Primary Impression: Abdominal pain Qualified Code: R10.30 - Lower abdominal pain, unspecified Additional Impression: Vaginal discharge Disposition: HOME, SELF-CARE Condition: Improved Departure-Patient Inst. Decision time for Depature: 18:10 Referrals: NO,LOCAL PHYSICIAN (PCP/Family) Primary Care Physician Patient Instructions: Acute Abdomen (Belly Pain), Adult (DC), Acute Pelvic Pain (DC) Add. Discharge Instructions: All discharge instructions reviewed with patient and/or family. Voiced understanding. Take medications as directed. Drink plenty of fluids. You may use ibuprofen 800 mg every 8 hours as needed for pain. You may use MiraLAX 1 capful 2 or 3 times a day for the next 3 days and then one or 2 times daily thereafter to keep stools soft, especially while on narcotics. He may decrease that dose as bowel movements improve. Follow-up with your doctor in a few days for recheck. Return for worse pain, fever, vomiting, weakness, breathing problems or other concerns as needed. Scripts Metronidazole 500 Mg [id number] Mg PO BID #14 TAB Prov:NOLAN BLOOD MD 10/26/16 NOLAN BLOOD MD Oct 26, 2016 17:09
[2016-10-26] MEDS ORDERED: IOHEXOL 350 MG/ML 100 ML (OMNIPAQUE 350) VIAL IV ONE (17:15)
[2016-10-26] MEDS ORDERED: NS 100 ML (IVPB) BAG IV ONE (17:15)
--- NOTE | 2016-10-26 17:49 | Diagnostic Imaging Report ---
Procedure: CT abdomen and pelvis with contrast. Technique: Multiple contiguous axial images were obtained through the abdomen and pelvis after administration of intravenous contrast. Indication: Generalized lower abdominal pain, greatest within the right pelvis. History of recent IUD placement and subsequent removal. Comparison: 10/11/2016. Discussion: The visualized lung bases are well-aerated. Normal heart size. No pleural or pericardial fluid. The spleen is normal in size on today's exam, measuring 12.2 cm. The liver, gallbladder, pancreas, stomach, adrenal glands, kidneys, uterus and urinary bladder are unremarkable. Normal follicular activity is demonstrated within the bilateral ovaries. No ascites or pathologically enlarged lymph nodes are identified. The abdominal aorta is normal in caliber. Mild constipation is noted. No abnormal small bowel loops. No obstruction, pneumatosis or pneumoperitoneum. The appendix is not seen with certainty though no secondary inflammatory changes are identified. No osseous abnormality is identified. Impression: 1. Mild constipation. 2. The appendix is not identified though no secondary inflammatory changes are present. No other acute abnormality identified. Dictated by: Dictated on workstation # [id number]
[2016-10-26] MEDS ORDERED: METR500T21 PO (18:14)
[2016-10-26 18:28] VITALS: BP 130/85
== END 2016-10-26 18:30 | disposition home or self-care (01) ==
LOC: EDUNIT# 13:59 → ER 14:01
DX: R10.30 Lower abdominal pain, unspecified (principal); N89.8 Other specified noninflammatory disorders of vagina
CPT/HCPCS: 36415; 71020; 74177; 80053; 81000; 83605; 83735; 85025; 86141; 87040; 87804; 96361; 96374

== ENCOUNTER 2019-11-06 12:22 | Emergency (ER) | payer MEDICAID ==
[~2019-11-06] VITALS: Ht 149 cm; Wt 66.8 kg
[~2019-11-06 12:22] MED LIST changes: +METR-145 PO
[2019-11-06] MEDS ORDERED: NS IV 500 ML 500 ML IV STA (12:34)
--- NOTE | 2019-11-06 12:38 | ED General ---
General Chief Complaint: Glucose Problems Stated Complaint: HIGH BS,NAUSEA, SWELLING Nursing Triage Note: states blood glucose is 217 and she has not been feeling well. Is 34 weeks and is a gestational diabetic. States sugars have been high since yesterday. Has also been vomiting, having headaches, and sweating and having swelling to lower legs. Has rash on chest. Nursing Sepsis Screen: No Definite Risk History of Present Illness Date Seen by Provider: Nov 06, 2019 Time Seen by Provider: 12:25 Initial Comments This patient is a 24-year-old female that is a with 3 spontaneous abortions. Patient states last was between this in the last . Patient states she is 34 weeks . And is having issues with gestational diabetes with previous pregnancies. Patient is a patient of Dr. gonzalez. Patient states that her blood sugars been running high today patient does not take any insulin for her gestational diabetes she just has the monitor with diet. Patient is also noticed to have a rash on her skin does not realize she hasn't. Patient states she been running higher blood pressures however blood pressure checked at the bedside is normal. Patient does appear to be somewhat anxious. Patient will do medical evaluation treatment is needed. Timing/Duration: 1 Day Associated Systoms: No Denies Symptoms, No Chest Pain, No Cough, No Diaphoresis, No Fever/Chills, No Headaches, No Loss of Appetite, No Malaise, No Nausea/Vomiting, No Rash, No Seizure, No Shortness of Air, No Syncope, No Weakness, No Other Allergies and Home Medications Allergies Coded Allergies: Penicillins (Verified Allergy, Unknown, 01/08/16) doxycycline (Verified Allergy, Unknown, 01/08/16) Home Medications Famotidine 20 Mg Tablet, 20 MG PO BID Prescribed by: JYOTI HAYES on 10/11/162012 Metronidazole 500 Mg Tablet, 500 MG PO BID Prescribed by: NOLAN BLOOD on 10/26/161813 Ondansetron 8 Mg Tab.rapdis, 8 MG PO Q6H PRN for NAUSEA/VOMITING Prescribed by: JYOTI HAYES on 10/11/162012 Sertraline HCl 25 Mg Tablet, 25 MG PO DAILY, (Reported) Patient Home Medication List Home Medication List Reviewed: Yes Review of Systems Review of Systems Constitutional: no symptoms reported; No see HPI, No chills, No diaphoresis, No dizziness, No fever, No malaise, No weakness, No weight gain, No weight loss, No other EENTM: No see HPI, No no symptoms reported, No ear discharge, No hearing loss, No ear pain, No blurred vision, No double vision, No eye pain, No tearing, No vision loss, No dental problems, No hoarseness, No mouth pain, No mouth swelling, No epistaxis, No nose congestion, No nose pain, No throat pain, No throat swelling, No other Respiratory: No no symptoms reported, No see HPI, No cough, No dyspnea on exertion, No hemoptysis, No orthopnea, No phlegm, No short of breath, No stridor, No wheezing, No other Cardiovascular: No no symptoms reported, No see HPI, No chest pain, No edema, No Hx of Intervention, No palpitations, No syncope, No vascular heart diseas, No other Gastrointestinal: No RUQ, No LUQ, No RLQ, No LLQ; no symptoms reported, see HPI; No abdominal pain, No constipation, No diarrhea, No dysphagia, No hematemesis, No heartburn, No jaundice, No loss of appetite, No melena, No n ausea, No vomiting, No other Skin: no symptoms reported, see HPI; No change in color, No change in hair/na ils, No dryness, No hx of skin cancer, No lesions, No lumps, No pruritus; rash; No other Psychiatric/Neurological: Denies No Symptoms Reported, Denies See HPI; Anxiety; Denies Depressed, Denies Emotional Problems, Denies Headache, Denies Numbness, Denies Paresthesia, Denies Pre-Existing Deficit, Denies Seizure, Denies Tingling, Denies Tremors, Denies Weakness, Denies Other Past Msuklfb-Ffpirq-Fappyy Hx Patient Social History Alcohol Use: Denies Use Recreational Drug Use: No Smoking Status: Never a Smoker 2nd Hand Smoke Exposure: No Recent Foreign Travel: No Contact w/Someone Who Travel: No Recent Infectious Disease Expo: No Recent Hopitalizations: No Immunizations Up To Date Tetanus Booster (TDap): Less than 5yrs Date of Influenza Vaccine: Jun 18, 2016 Seasonal Allergies Seasonal Allergies: No Past Medical History Surgeries: Yes (tubes in ears) Abdominal, Adenoidectomy, Appendectomy, Ear Surgery, Gallbladder Respiratory: No Cardiac: No Neurological: No Reproductive Disorders: Yes ("precancerous cells uterus") Genitourinary: No Gastrointestinal: No Musculoskeletal: No Endocrine: Yes (gestational diabetes) HEENT: No Cancer: No Psychosocial: No Blood Disorders: No Family Medical History Cardiovascular disease 19 FATHER Diabetes mellitus 19 MOTHER (gestational dm) Neoplasm 19 MOTHER (cervical ca ) Psychosocial problem G8 BROTHER (2 brothers w/ autism) Visual disorder G8 BROTHER (brother blind ) Cancer, Other Conditions/Hx Physical Exam Vital Signs Vital Signs - First Documented 11/06/19 12:28 Temp 37.0 Pulse 109 Resp 16 B/P (MAP) 125/83 (97) Pulse Ox 97 Capillary Refill : Less Than 3 Seconds Height, Weight, BMI Height: 4'11" Weight: 128lbs. 6.0oz. 58.293409oc; 30.00 BMI Method:Stated General Appearance: No Apparent Distress, WD/WN HEENT: PERRL/EOMI, TMs Normal, Normal ENT Inspection, Pharynx Normal Neck: Full Range of Motion, Normal Inspection, Non Tender, Supple, Carotid Bruit Respiratory: Chest Non Tender, Lungs Clear, Normal Breath Sounds, No Accessory Muscle Use, No Respiratory Distress Cardiovascular: Regular Rate, Rhythm, No Edema, No Gallop, No JVD, No Murmur, Normal Peripheral Pulses Gastrointestinal: Normal Bowel Sounds, No Organomegaly, No Pulsatile Mass, Non Tender, Soft, Other (gravid at 34 weeks) Back: Normal Inspection, No CVA Tenderness, No Vertebral Tenderness Extremity: Normal Capillary Refill, Normal Inspection, Normal Range of Motion, Non Tender, No Calf Tenderness, No Pedal Edema Neurologic/Psychiatric: Alert, Oriented x3, No Motor/Sensory Deficits, Normal Mood/Affect Skin: Warm/Dry, Rash (uticaria) Progress/Results/Core Measures Suspected Sepsis Recent Fever Within 48 Hours: No Infection Criteria Present: None New/Unexplained Altered Menta: No Sepsis Screen: No Definite Risk SIRS Temperature: Pulse: 109 Respiratory Rate: 16 Laboratory Tests 11/06/19 12:34: White Blood Count 11.6H Blood Pressure 125 /83 Mean: 97 Laboratory Tests 11/06/19 12:34: Creatinine 0.39L, Platelet Count 236 Results/Orders Lab Results Laboratory Tests Test 11/06/19 12:34 11/06/19 13:00 Range/Units White Blood Count 11.6 H 4.3-11.0 10^3/uL Red Blood Count 3.85 L 4.35-5.85 10^6/uL Hemoglobin 11.2 L 11.5-16.0 G/DL Hematocrit 33 L 35-52 % Mean Corpuscular Volume 87 80-99 FL Mean Corpuscular Hemoglobin 29 25-34 PG Mean Corpuscular Hemoglobin Concent 34 32-36 G/DL Red Cell Distribution Width 14.1 10.0-14.5 % Platelet Count 236 130-400 10^3/uL Mean Platelet Volume 9.8 7.4-10.4 FL Neutrophils (%) (Auto) 83 H 42-75 % Lymphocytes (%) (Auto) 11 L 12-44 % Monocytes (%) (Auto) 5 0-12 % Eosinophils (%) (Auto) 1 0-10 % Basophils (%) (Auto) 0 0-10 % Neutrophils # (Auto) 9.6 H 1.8-7.8 X 10^3 Lymphocytes # (Auto) 1.2 1.0-4.0 X 10^3 Monocytes # (Auto) 0.6 0.0-1.0 X 10^3 Eosinophils # (Auto) 0.1 0.0-0.3 10^3/uL Basophils # (Auto) 0.0 0.0-0.1 10^3/uL Neutrophils % (Manual) 79 % Lymphocytes % (Manual) 10 % Monocytes % (Manual) 6 % Band Neutrophils 1 % Atypical Lymphocytes 4 % Sodium Level 138 135-145 MMOL/L Potassium Level 3.6 3.6-5.0 MMOL/L Chloride Level 105 98-107 MMOL/L Carbon Dioxide Level 21 21-32 MMOL/L Anion Gap 12 5-14 MMOL/L Blood Urea Nitrogen 4 L 7-18 MG/DL Creatinine 0.39 L 0.60-1.30 MG/DL Estimat Glomerular Filtration Rate > 60 BUN/Creatinine Ratio 10 Glucose Level 144 H 70-105 MG/DL Calcium Level 9.0 8.5-10.1 MG/DL Urine Color YELLOW Urine Clarity CLEAR Urine pH 7.0 5-9 Urine Specific [place] 1.010 L 1.016-1.022 Urine Protein NEGATIVE NEGATIVE Urine Glucose (UA) 1+ H NEGATIVE Urine Ketones NEGATIVE NEGATIVE Urine Nitrite NEGATIVE NEGATIVE Urine Bilirubin NEGATIVE NEGATIVE Urine Urobilinogen 0.2 < = 1.0 MG/DL Urine Leukocyte Esterase 1+ H NEGATIVE Urine RBC (Auto) NEGATIVE NEGATIVE Urine RBC NONE /HPF Urine WBC 5-10 H /HPF Urine Squamous Epithelial Cells 5-10 /HPF Urine Crystals NONE /LPF Urine Bacteria FEW H /HPF Urine Casts NONE /LPF Urine Mucus NEGATIVE /LPF Urine Culture Indicated YES Urine Opiates Screen NEGATIVE NEGATIVE Urine Oxycodone Screen NEGATIVE NEGATIVE Urine Methadone Screen NEGATIVE NEGATIVE Urine Propoxyphene Screen NEGATIVE NEGATIVE Urine Barbiturates Screen NEGATIVE NEGATIVE Ur Tricyclic Antidepressants Screen NEGATIVE NEGATIVE Urine Phencyclidine Screen NEGATIVE NEGATIVE Urine Amphetamines Screen NEGATIVE NEGATIVE Urine Methamphetamines Screen NEGATIVE NEGATIVE Urine Benzodiazepines Screen NEGATIVE NEGATIVE Urine Cocaine Screen NEGATIVE NEGATIVE Urine Cannabinoids Screen NEGATIVE NEGATIVE My Orders Orders - DANA BARRETT MD Diphenhydramine Injection (Benadryl Inje (11/06/19 12:45) Cbc And Manual Diff (11/06/19 12:32) Basic Metabolic Panel (11/06/19 12:32) Drug Screen Stat (Urine) (11/06/19 12:32) Abo Rh Type (11/06/19 12:32) Urinalysis (11/06/19 12:32) Heart Tones (11/06/19 12:32) Ns Iv 500 Ml (Sodium Chloride 0.9%) (11/06/19 12:34) Urine Culture (11/06/19 13:00) Medications Given in ED Current Medications Medications Dose Ordered Sig/Shelia Route Start Time Stop Time Status Last Admin Dose Admin Diphenhydramine HCl 25 mg ONCE ONCE IVP 11/06/19 12:45 11/06/19 12:46 DC 11/06/19 12:43 25 MG Vital Signs/I&O 11/06/19 12:28 Temp 37.0 Pulse 109 Resp 16 B/P (MAP) 125/83 (97) Pulse Ox 97 Capillary Refill : Less Than 3 Seconds Blood Pressure Mean: 97 Progress Note : Progress Note Glucose down to 140 on chemistry. Patient's rash is improved. Patient does admit that she does have a history of anxiety. Patient's blood pressure is 108/74 patient. To be calm. Patient given reassurance. Encourage by mouth fluids. Advance diet slowly from a clear liquid diet. Monitor glucose and carbohydrate intake due to gestational diabetes. Continue Benadryl every 8 hours as needed for nonspecific rash.. Follow-up with [facility]LE DIGGER OPERATOR as instructed. Departure Impression Primary Impression: Hyperglycemia Additional Impressions: Rash and nonspecific skin eruption Anxiety about health Intrauterine Disposition: 01 HOME, SELF-CARE Condition: Stable Departure-Patient Inst. Decision time for Depature: 14:09 Referrals: IDALIA LR DO Patient Instructions: - The Seventh Month, Diabetes and Diet, Blood Glucose Monitoring, Skin Rash Add. Discharge Instructions: Encourage by mouth fluids. Advance diet slowly from a clear liquid diet. Monitor glucose and carbohydrate intake due to gestational diabetes. Continue Benadryl every 8 hours as needed for nonspecific rash.. Follow-up with [facility]LE DIGGER OPERATOR as instructed All discharge instructions reviewed with patient and/or family. Voiced understanding. DANA BARRETT MD Nov 06, 2019 12:38
[2019-11-06] MEDS ORDERED: diphenhydrAMINE 50 MG/ML INJ (BENADRYL) IVP ONE (12:45)
[2019-11-06 12:48] LABS: BASOPHILS % (AUTO) 0 % (0-10); EOSINOPHILS % (AUTO) 1 % (0-10); HEMATOCRIT 33 % (35-52); HEMOGLOBIN 11.2 G/DL (11.5-16.0); LYMPHOCYTES % (AUTO) 11 % (12-44); MEAN CORPUSCULAR HEMOGLOBIN 29 PG (25-34); MEAN CORPUSCULAR HGB CONC 34 G/DL (32-36); MEAN CORPUSCULAR VOLUME 87 FL (80-99); MEAN PLATELET VOLUME 9.8 FL (7.4-10.4); MONOCYTES % (AUTO) 5 % (0-12); NEUTROPHILS % (AUTO) 83 % (42-75); PLATELET COUNT 236 10^3/uL (130-400); RED CELL DISTRIBUTION WIDTH 14.1 % (10.0-14.5); WHITE BLOOD COUNT 11.6 10^3/uL (4.3-11.0)
[2019-11-06 12:49] LABS: EOSINOPHILS # (AUTO) 0.1 10^3/uL (0.0-0.3); LYMPHOCYTES # (AUTO) 1.2 X 10^3 (1.0-4.0); MONOCYTES # (AUTO) 0.6 X 10^3 (0.0-1.0); NEUTROPHILS # (AUTO) 9.6 X 10^3 (1.8-7.8)
[2019-11-06 13:07] LABS: BUN/CREATININE RATIO 10; CARBON DIOXIDE 21 MMOL/L (21-32); CHLORIDE 105 MMOL/L (98-107); CREATININE SERUM 0.39 MG/DL (0.60-1.30); GFR ESTIMATED > 60; GLUCOSE 144 MG/DL (70-105); POTASSIUM 3.6 MMOL/L (3.6-5.0); SODIUM 138 MMOL/L (135-145)
[2019-11-06 13:25] LABS: ATYPICAL LYMPHOCYTES 4 %; BAND NEUTROPHILS 1 %; LYMPHOCYTES % (MANUAL) 10 %; MONOCYTES % (MANUAL) 6 %; NEUTROPHILS % (MANUAL) 79 %
[2019-11-06 13:56] LABS: AMPHETAMINE SCREEN, URINE NEGATIVE (NEGATIVE); BARBITURATE SCREEN URINE NEGATIVE (NEGATIVE); BENZODIAZEPINES SCREEN URINE NEGATIVE (NEGATIVE); CANNABINOID SCREEN, URINE NEGATIVE (NEGATIVE); COCAINE SCREEN URINE NEGATIVE (NEGATIVE); METHADONE STAT NEGATIVE (NEGATIVE); METHAMPHETAMINE SCREEN URINE S NEGATIVE (NEGATIVE); OPIATE SCREEN URINE NEGATIVE (NEGATIVE); OXYCODONE STAT NEGATIVE (NEGATIVE); PROPOXYPHENE STAT NEGATIVE (NEGATIVE); TRICYCLIC ANTIDEPRESSANTS SCRE NEGATIVE (NEGATIVE)
[2019-11-06 13:58] LABS: COLOR,URINE YELLOW
[2019-11-06 13:59] LABS: BACTERIA,URINE FEW /HPF; BILIRUBIN,URINE NEGATIVE (NEGATIVE); CLARITY,URINE CLEAR; GLUCOSE, URINE (UA) 1+ (NEGATIVE); KETONES,URINE NEGATIVE (NEGATIVE); LEUKOCYTE ESTERASE ,URINE 1+ (NEGATIVE); NITRITE,URINE NEGATIVE (NEGATIVE); PROTEIN,URINE NEGATIVE (NEGATIVE)
[2019-11-06 14:25] VITALS: BP 118/69
== END 2019-11-06 14:25 | disposition home or self-care (01) ==
LOC: EDUNIT# 12:22 → ER FS 12:24
DX: O24.410 Gestational diabetes mellitus in pregnancy, diet controlled (principal); O26.893 Other specified pregnancy related conditions, third trimester; R21 Rash and other nonspecific skin eruption; O99.343 Other mental disorders complicating pregnancy, third trimester; F41.9 Anxiety disorder, unspecified; Z80.8 Family history of malignant neoplasm of other organs or systems; Z88.0 Allergy status to penicillin; Z88.1 Allergy status to other antibiotic agents; Z3A.34 34 weeks gestation of pregnancy
CPT/HCPCS: 36415; 80048; 80306; 81000; 85007; 85027; 86900; 86901; 87088

== ENCOUNTER 2020-03-25 13:01 | Emergency (ER) | payer MEDICAID ==
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
[2020-03-25 13:29] LABS: CLARITY,URINE CLEAR; COLOR,URINE YELLOW; PH,URINE 7.5 (5-9)
[2020-03-25 13:30] LABS: BACTERIA,URINE NEGATIVE /HPF; BILIRUBIN,URINE NEGATIVE (NEGATIVE); GLUCOSE, URINE (UA) NEGATIVE (NEGATIVE); KETONES,URINE NEGATIVE (NEGATIVE); LEUKOCYTE ESTERASE ,URINE NEGATIVE (NEGATIVE); NITRITE,URINE NEGATIVE (NEGATIVE); PROTEIN,URINE NEGATIVE (NEGATIVE); SQUAMOUS EPITHELIAL CELL,UR 0-2 /HPF; WBC,URINE 0-2 /HPF
[2020-03-25 13:46] LABS: AMPHETAMINE SCREEN, URINE NEGATIVE (NEGATIVE); BARBITURATE SCREEN URINE NEGATIVE (NEGATIVE); BENZODIAZEPINES SCREEN URINE NEGATIVE (NEGATIVE); CANNABINOID SCREEN, URINE NEGATIVE (NEGATIVE); COCAINE SCREEN URINE NEGATIVE (NEGATIVE); METHADONE STAT NEGATIVE (NEGATIVE); METHAMPHETAMINE SCREEN URINE S NEGATIVE (NEGATIVE); OPIATE SCREEN URINE POSITIVE (NEGATIVE); OXYCODONE STAT NEGATIVE (NEGATIVE); PROPOXYPHENE STAT NEGATIVE (NEGATIVE); TRICYCLIC ANTIDEPRESSANTS SCRE NEGATIVE (NEGATIVE)
[2020-03-25 13:51] LABS: HEMATOCRIT 41 % (35-52); HEMOGLOBIN 14.5 G/DL (11.5-16.0); MEAN CORPUSCULAR HEMOGLOBIN 30 PG (25-34); MEAN CORPUSCULAR HGB CONC 35 G/DL (32-36); MEAN CORPUSCULAR VOLUME 86 FL (80-99); MEAN PLATELET VOLUME 10.2 FL (7.4-10.4); PLATELET COUNT 260 10^3/uL (130-400); RED CELL DISTRIBUTION WIDTH 13.8 % (10.0-14.5); WHITE BLOOD COUNT 6.3 10^3/uL (4.3-11.0)
[2020-03-25 13:52] LABS: BASOPHILS % (AUTO) 1 % (0-10); EOSINOPHILS # (AUTO) 0.1 10^3/uL (0.0-0.3); EOSINOPHILS % (AUTO) 2 % (0-10); LYMPHOCYTES # (AUTO) 1.5 X 10^3 (1.0-4.0); LYMPHOCYTES % (AUTO) 24 % (12-44); MONOCYTES # (AUTO) 0.3 X 10^3 (0.0-1.0); MONOCYTES % (AUTO) 4 % (0-12); NEUTROPHILS # (AUTO) 4.4 X 10^3 (1.8-7.8); NEUTROPHILS % (AUTO) 69 % (42-75)
[2020-03-25 14:00] LABS: CARBON DIOXIDE 23 MMOL/L (21-32); CHLORIDE 104 MMOL/L (98-107); POTASSIUM 3.6 MMOL/L (3.6-5.0); SODIUM 138 MMOL/L (135-145)
[2020-03-25 14:01] LABS: BUN/CREATININE RATIO 10; CALCIUM 9.7 MG/DL (8.5-10.1); GFR ESTIMATED > 60; GLUCOSE 107 MG/DL (70-105)
--- NOTE | 2020-03-25 14:07 | NUR ---
[facility] clinician on duty states that patient does not meet the criteria for a crisis intervention screening and will not be screened today.
[2020-03-25 14:45] VITALS: BP 115/75
== END 2020-03-25 14:44 | disposition home or self-care (01) ==
LOC: EDUNIT# 13:01 → ER FS 13:03
DX: F43.9 Reaction to severe stress, unspecified (principal); F32.9 Major depressive disorder, single episode, unspecified; Z88.0 Allergy status to penicillin; Z88.1 Allergy status to other antibiotic agents; Z91.14 Patient's other noncompliance with medication regimen; Z82.49 Family history of ischemic heart disease and other diseases of the circulatory system
CPT/HCPCS: 36415; 80048; 80306; 81000; 84703; 85025; 99283; G0480; 80320

== ENCOUNTER 2020-05-05 14:12 | Emergency (ER) | payer MEDICAID ==
[~2020-05-05] VITALS: Ht 149.8 cm; Wt 56.6 kg
[2020-05-05] MEDS ORDERED: hydrOXYzine (VISTARIL/ATARAX) 25 MG capsule/tablet PO ONE (14:15)
--- NOTE | 2020-05-05 14:17 | ED Psychosocial ---
General Stated Complaint: ASHTHMA ATTACK; HIVES Source: patient, RN/MD, RN notes reviewed, EMS notes reviewed, old records Exam Limitations: no limitations History of Present Illness Date Seen by Provider: May 05, 2020 Time Seen by Provider: 14:05 Initial Comments This patient is a 24-year-old female presents to the emergency department complaining of acute shortness of breath. Patient states that she was sitting on the couch at home which came acutely short of breath. Patient went to the local clinic on EMS was called and brought to the emergency department. EMS to give patient a breathing treatment in route. Patient has normal breath sounds and does not appear to be acutely distressed. When discussing with patient about her history patient has a long history of anxiety and has had panic attacks in the past. Patient admits that she has been under quite a bit of stress here lately. Patient states that she takes antidepressant along with propanolol to help prevent anxiety and panic attacks. We'll do medical evaluation treatment is needed. Timing/Duration: just prior to arrival Severity: moderate Associated Symptoms: anxiety Allergies and Home Medications Allergies Coded Allergies: Penicillins (Verified Allergy, Unknown, 01/08/16) doxycycline (Verified Allergy, Unknown, 01/08/16) Home Medications Famotidine 20 Mg Tablet, 20 MG PO BID Prescribed by: JYOTI HAYES on 10/11/162012 Metronidazole 500 Mg Tablet, 500 MG PO BID Prescribed by: NOLAN BLOOD on 10/26/161813 Ondansetron 8 Mg Tab.rapdis, 8 MG PO Q6H PRN for NAUSEA/VOMITING Prescribed by: JYOTI HAYES on 10/11/162012 Sertraline HCl 25 Mg Tablet, 25 MG PO DAILY, (Reported) Patient Home Medication List Home Medication List Reviewed: Yes Review of Systems Constitutional: No no symptoms reported; see HPI; No chills, No diaphoresis, No dizziness, No fever, No malaise, No weakness, No weight gain, No weight loss, No other EENTM: No see HPI, No no symptoms reported, No ear discharge, No hearing loss, No ear pain, No blurred vision, No double vision, No eye pain, No tearing, No vision loss, No dental problems, No hoarseness, No mouth pain, No mouth swelling, No epistaxis, No nose congestion, No nose pain, No throat pain, No throat swelling, No other Respiratory: No no symptoms reported; see HPI; No cough, No dyspnea on exertion, No hemoptysis, No orthopnea, No phlegm, No short of breath, No stridor, No wheezing, No other Cardiovascular: No no symptoms reported, No see HPI, No chest pain, No edema, No Hx of Intervention, No palpitations, No syncope, No vascular heart diseas, No other Gastrointestinal: No RUQ, No LUQ, No RLQ, No LLQ, No no symptoms reported, No see HPI, No abdominal pain, No constipation, No diarrhea, No dysphagia, No hematemesis, No heartburn, No jaundice, No loss of appetite, No melena, No nausea, No vomiting, No other Genitourinary: No no symptoms reported, No see HPI, No decreased output, No discharge, No dysuria, No frequency, No hematuria, No hesitancy, No incontinence, No nocturia, No pain, No other Musculoskeletal: No no symptoms reported, No see HPI, No back pain, No gout, No joint pain, No joint swelling, No muscle pain, No muscle stiffness, No muscle cramps, No muscle twitching, No muscle weakness, No neck pain, No other Skin: No no symptoms reported, No see HPI, No change in color, No change in hair/nails, No dryness, No hx of skin cancer, No lesions, No lumps, No pruritus, No rash, No other Psychiatric/Neurological: Denies No Symptoms Reported; See HPI, Anxiety; Denies Depressed, Denies Emotional Problems, Denies Headache, Denies Numbness, Denies Paresthesia, Denies Pre-Existing Deficit, Denies Seizure, Denies Tingling, Denies Tremors, Denies Weakness, Denies Other All Other Systems Reviewed Negative Unless Noted: Yes Past Iswsnir-Tzijxd-Qmptxv Hx Patient Social History Type Used: Cigarettes 2nd Hand Smoke Exposure: No Recent Hopitalizations: No Immunizations Up To Date Tetanus Booster (TDap): Less than 5yrs Date of Influenza Vaccine: Jun 18, 2016 Seasonal Allergies Seasonal Allergies: No Past Medical History Surgeries: Yes (tubes in ears) Abdominal, Adenoidectomy, Appendectomy, Ear Surgery, Gallbladder Respiratory: No Cardiac: No Neurological: No Reproductive Disorders: Yes ("precancerous cells uterus") Genitourinary: No Gastrointestinal: No Musculoskeletal: No Endocrine: Yes (gestational diabetes) HEENT: No Cancer: No Psychosocial: No Integumentary: Yes (current rash on back/chest) Blood Disorders: No Family Medical History Cardiovascular disease 19 FATHER Diabetes mellitus 19 MOTHER (gestational dm) Neoplasm 19 MOTHER (cervical ca ) Psychosocial problem G8 BROTHER (2 brothers w/ autism) Visual disorder G8 BROTHER (brother blind ) Cancer, Other Conditions/Hx Physical Exam Vital Signs - First Documented 05/05/20 14:13 Temp 36.3 Pulse 90 Resp 18 B/P (MAP) 132/81 (98) Pulse Ox 99 O2 Delivery Room Air Capillary Refill : Height, Weight, BMI Height: 4'11" Weight: 128lbs. 6.0oz. [id number]; 30.00 BMI Method:Stated General Appearance: WD/WN, no apparent distress Respiratory: chest non-tender, lungs clear, normal breath sounds, no respiratory distress, no accessory muscle use Cardiovascular: normal peripheral pulses, regular rate, rhythm, no edema, no gallop, no JVD, no murmur Gastrointestinal: normal bowel sounds, non tender, soft, no organomegaly, no pulsatile mass Neurologic/Psychiatric: manager financial II-XII nml as tested, no motor/sensory deficits, alert, normal mood/affect, oriented x 3, abnormal cerebellar tests, abnormal manager financial II-XII Behavior/Eye Contact: cooperative, good eye contact, normal speech Progress/Results/Core Measures Results/Orders Lab Results Laboratory Tests Test 05/05/20 14:30 Range/Units Urine Color YELLOW Urine Clarity CLEAR Urine pH 7.0 5-9 Urine Specific [place] 1.015 L 1.016-1.022 Urine Protein NEGATIVE NEGATIVE Urine Glucose (UA) NEGATIVE NEGATIVE Urine Ketones NEGATIVE NEGATIVE Urine Nitrite NEGATIVE NEGATIVE Urine Bilirubin NEGATIVE NEGATIVE Urine Urobilinogen 0.2 < = 1.0 MG/DL Urine Leukocyte Esterase NEGATIVE NEGATIVE Urine RBC (Auto) NEGATIVE NEGATIVE Urine RBC NONE /HPF Urine WBC 0-2 /HPF Urine Squamous Epithelial Cells 5-10 /HPF Urine Crystals NONE /LPF Urine Bacteria NEGATIVE /HPF Urine Casts NONE /LPF Urine Mucus NEGATIVE /LPF Urine Culture Indicated NO Urine Opiates Screen NEGATIVE NEGATIVE Urine Oxycodone Screen NEGATIVE NEGATIVE Urine Methadone Screen NEGATIVE NEGATIVE Urine Propoxyphene Screen NEGATIVE NEGATIVE Urine Barbiturates Screen NEGATIVE NEGATIVE Ur Tricyclic Antidepressants Screen NEGATIVE NEGATIVE Urine Phencyclidine Screen NEGATIVE NEGATIVE Urine Amphetamines Screen NEGATIVE NEGATIVE Urine Methamphetamines Screen NEGATIVE NEGATIVE Urine Benzodiazepines Screen NEGATIVE NEGATIVE Urine Cocaine Screen NEGATIVE NEGATIVE Urine Cannabinoids Screen NEGATIVE NEGATIVE My Orders Orders - DANA BARRETT MD Urinalysis (05/05/20 14:14) Drug Screen Stat (Urine) (05/05/20 14:14) Ekg Tracing (05/05/20 14:14) Chest 1 View Ap/Pa Only (05/05/20 14:14) Hydroxyzine Cap/Tab (Vistaril) (05/05/20 14:15) Medications Given in ED Current Medications Medications Dose Ordered Sig/Shelia Route Start Time Stop Time Status Last Admin Dose Admin Hydroxyzine Pamoate 25 mg ONCE ONCE PO 05/05/20 14:15 05/05/20 14:16 DC 05/05/20 14:19 25 MG Vital Signs/I&O 05/05/20 14:13 Temp 36.3 Pulse 90 Resp 18 B/P (MAP) 132/81 (98) Pulse Ox 99 O2 Delivery Room Air Progress Progress Note : Time: 15:12 Progress Note Negative evaluation in the emerge department for any acute findings. Patient is feeling much improved and calming down. Patient was given hydroxyzine in the emergency department. I did discuss at length with patient about different options. Patient will continue all home medications. Follow-up with her PCP to discuss her issues with anxiety and panic attack. May need medication adjustments. Patient states understanding she is discharged home Initial ECG Impression Date: May 05, 2020 Initial ECG Impression Time: 14:12 Initial ECG Rate: 120 Initial ECG Rhythm: S.Tach Initial ECG Intervals: Normal Initial ECG Impression: Normal Departure Impression Primary Impression: Panic attack Additional Impression: Chronic anxiety Disposition: 01 HOME, SELF-CARE Condition: Stable Departure-Patient Inst. Decision time for Depature: 15:13 Referrals: NO,LOCAL PHYSICIAN (PCP) Primary Care Physician Patient Instructions: Panic Disorder (DC), Anxiety, Adult (DC) Add. Discharge Instructions: Continue all home medications. Try relaxation exercises. Follow-up with PCP in 2-3 days to discuss possible medication options for acute on chronic anxiety. DANA BARRETT MD May 05, 2020 14:17
--- NOTE | 2020-05-05 14:34 | Diagnostic Imaging Report ---
INDICATION: Anxiety. Comparison made with prior examination of 10/26/2016. FINDINGS: The heart size, mediastinal configuration, and pulmonary vascularity are within normal limits. There is no pleural effusion, pneumothorax, or pneumonia. The osseous structures are unremarkable. IMPRESSION: No acute cardiopulmonary abnormality. Dictated by: Dictated on workstation # [id number]
[2020-05-05 14:48] LABS: CLARITY,URINE CLEAR; COLOR,URINE YELLOW
[2020-05-05 14:49] LABS: BILIRUBIN,URINE NEGATIVE (NEGATIVE); GLUCOSE, URINE (UA) NEGATIVE (NEGATIVE); KETONES,URINE NEGATIVE (NEGATIVE); LEUKOCYTE ESTERASE ,URINE NEGATIVE (NEGATIVE); NITRITE,URINE NEGATIVE (NEGATIVE); PROTEIN,URINE NEGATIVE (NEGATIVE)
[2020-05-05 14:54] LABS: BACTERIA,URINE NEGATIVE /HPF; WBC,URINE 0-2 /HPF
[2020-05-05 14:58] LABS: AMPHETAMINE SCREEN, URINE NEGATIVE (NEGATIVE); BARBITURATE SCREEN URINE NEGATIVE (NEGATIVE); BENZODIAZEPINES SCREEN URINE NEGATIVE (NEGATIVE); CANNABINOID SCREEN, URINE NEGATIVE (NEGATIVE); COCAINE SCREEN URINE NEGATIVE (NEGATIVE); METHADONE STAT NEGATIVE (NEGATIVE); METHAMPHETAMINE SCREEN URINE S NEGATIVE (NEGATIVE); OPIATE SCREEN URINE NEGATIVE (NEGATIVE); OXYCODONE STAT NEGATIVE (NEGATIVE); PROPOXYPHENE STAT NEGATIVE (NEGATIVE); TRICYCLIC ANTIDEPRESSANTS SCRE NEGATIVE (NEGATIVE)
[2020-05-05 15:18] VITALS: BP 120/75
== END 2020-05-05 15:19 | disposition home or self-care (01) ==
LOC: EDUNIT# 14:12 → ER FS 14:13
DX: F41.0 Panic disorder [episodic paroxysmal anxiety] (principal); F41.9 Anxiety disorder, unspecified; Z82.49 Family history of ischemic heart disease and other diseases of the circulatory system; Z80.49 Family history of malignant neoplasm of other genital organs; Z88.0 Allergy status to penicillin; Z88.1 Allergy status to other antibiotic agents
CPT/HCPCS: 71045; 80306; 81000

== ENCOUNTER 2020-11-08 14:01 | Inpatient (IN) | payer OTHER, MEDICAID ==
[~2020-11-08] VITALS: Ht 149.9 cm; Wt 68.7 kg
--- NOTE | 2020-11-08 14:09 | ED Neurological Problem ---
General Stated Complaint: FALL; LT SIDED WEAKNESS; DIZZINESS History of Present Illness Date Seen by Provider: Nov 08, 2020 Time Seen by Provider: 14:09 Initial Comments 25-year-old female presents with dizziness that has resolved. Then left leg weakness. Patient reports that she was doing some work and got a little dizzy. That occasionally she gets a little dizzy. He thought maybe her blood sugar was off and a something. She went grab something out of a closet went to turn and then noticed that her left leg is heavy and dragging she is having difficulty lifting or moving it. Upon arrival to the ER she is still having difficulty lifting or moving her left leg. Patient does not have any symptoms in her upper extremities. She denies any back injury, no issues with bowel or bladder. She reports that her dizziness has resolved. Allergies and Home Medications Allergies Coded Allergies: Penicillins (Verified Allergy, Unknown, 01/08/16) doxycycline (Verified Allergy, Unknown, 01/08/16) latex (Verified Allergy, Unknown, 11/08/20) Home Medications Famotidine 20 Mg Tablet, 20 MG PO BID Prescribed by: JYOTI HAYES on 10/11/162012 Metronidazole 500 Mg Tablet, 500 MG PO BID Prescribed by: NOLAN BLOOD on 10/26/161813 Ondansetron 8 Mg Tab.rapdis, 8 MG PO Q6H PRN for NAUSEA/VOMITING Prescribed by: JYOTI HAYES on 10/11/162012 Sertraline HCl 25 Mg Tablet, 25 MG PO DAILY, (Reported) Patient Home Medication List Home Medication List Reviewed: Yes Review of Systems Review of Systems Constitutional: No chills; dizziness; No fever Ears, Nose, Mouth, Throat: no symptoms reported Respiratory: No cough, No short of breath Cardiovascular: No chest pain, No palpitations Gastrointestinal: no symptoms reported Genitourinary: no symptoms reported Musculoskeletal: see HPI Skin: no symptoms reported Psychiatric/Neurological: See HPI, Unable to Move Upper Ext (lower ) Endocrine: See HPI Hematologic/Lymphatic: No Symptoms Reported Past Urqtuoz-Zmxsjq-Arofhb Hx Patient Social History Type Used: Cigarettes 2nd Hand Smoke Exposure: No Recent Hopitalizations: No Immunizations Up To Date Tetanus Booster (TDap): Less than 5yrs Date of Influenza Vaccine: Jun 18, 2016 Seasonal Allergies Seasonal Allergies: No Past Medical History Surgeries: Yes (tubes in ears) Abdominal, Adenoidectomy, Appendectomy, Ear Surgery, Gallbladder Respiratory: No Cardiac: No Neurological: No Reproductive Disorders: Yes ("precancerous cells uterus") Genitourinary: No Gastrointestinal: No Musculoskeletal: No Endocrine: Yes (gestational diabetes) HEENT: No Cancer: No Psychosocial: Yes Anxiety Integumentary: Yes (current rash on back/chest) Blood Disorders: No Family Medical History Cardiovascular disease 19 FATHER Diabetes mellitus 19 MOTHER (gestational dm) Neoplasm 19 MOTHER (cervical ca ) Psychosocial problem G8 BROTHER (2 brothers w/ autism) Visual disorder G8 BROTHER (brother blind ) Cancer, Other Conditions/Hx Physical Exam Vital Signs Vital Signs - First Documented 11/08/20 14:08 Temp 36.9 Pulse 87 Resp 20 B/P (MAP) 119/77 (91) Pulse Ox 99 O2 Delivery Room Air Capillary Refill : Height, Weight, BMI Height: 4'11" Weight: 128lbs. 6.0oz. 58.031604qg; 25.00 BMI Method:Stated General Appearance: mild distress HEENT: PERRL/EOMI, normal ENT inspection Neck: full range of motion, supple Respiratory: lungs clear, normal breath sounds, no respiratory distress Cardiovascular: normal peripheral pulses, regular rate, rhythm Gastrointestinal: non tender, soft Neurologic/Psychiatric: hospital coordinator II-XII nml as tested, alert, normal mood/affect, oriented x 3 Coordination/Gait: normal finger to nose Motor/Sensory: no sensory deficit, no pronator drift, negative Babinski's sign, weak motor strength LLE Reflexes: 2+ Knee (R), 2+ Knee (L), 2+ Ankle (R), 2+ Ankle (L) Skin: normal color, warm/dry Progress/Results/Core Measures Results/Orders Lab Results Laboratory Tests Test 11/08/20 14:13 11/08/20 14:15 Range/Units Glucometer 71 70-110 MG/DL White Blood Count 8.5 4.3-11.0 10^3/uL Red Blood Count 4.70 4.35-5.85 10^6/uL Hemoglobin 14.6 11.5-16.0 G/DL Hematocrit 42 35-52 % Mean Corpuscular Volume 89 80-99 FL Mean Corpuscular Hemoglobin 31 25-34 PG Mean Corpuscular Hemoglobin Concent 35 32-36 G/DL Red Cell Distribution Width 12.3 10.0-14.5 % Platelet Count 245 130-400 10^3/uL Mean Platelet Volume 10.1 7.4-10.4 FL Immature Granulocyte % (Auto) 0 % Neutrophils (%) (Auto) 69 42-75 % Lymphocytes (%) (Auto) 23 12-44 % Monocytes (%) (Auto) 6 0-12 % Eosinophils (%) (Auto) 1 0-10 % Basophils (%) (Auto) 1 0-10 % Neutrophils # (Auto) 5.9 1.8-7.8 X 10^3 Lymphocytes # (Auto) 2.0 1.0-4.0 X 10^3 Monocytes # (Auto) 0.5 0.0-1.0 X 10^3 Eosinophils # (Auto) 0.1 0.0-0.3 10^3/uL Basophils # (Auto) 0.1 0.0-0.1 10^3/uL Immature Granulocyte # (Auto) 0.0 0.0-0.1 10^3/uL Prothrombin Time 12.6 12.2-14.7 SEC INR Comment 0.9 0.8-1.4 Activated Partial Thromboplast Time 29 24-35 SEC D-Dimer 0.27 0.00-0.49 UG/ML Sodium Level 139 135-145 MMOL/L Potassium Level 3.7 3.6-5.0 MMOL/L Chloride Level 104 98-107 MMOL/L Carbon Dioxide Level 26 21-32 MMOL/L Anion Gap 9 5-14 MMOL/L Blood Urea Nitrogen 8 7-18 MG/DL Creatinine 0.71 0.60-1.30 MG/DL Estimat Glomerular Filtration Rate > 60 BUN/Creatinine Ratio 11 Glucose Level 84 70-105 MG/DL Calcium Level 9.3 8.5-10.1 MG/DL Corrected Calcium 8.5-10.1 MG/DL Total Bilirubin 0.3 0.1-1.0 MG/DL Aspartate Amino Transf (AST/SGOT) 14 5-34 U/L Alanine Aminotransferase (ALT/SGPT) 12 0-55 U/L Alkaline Phosphatase 95 40-136 U/L Troponin I < 0.30 <0.30 NG/ML Total Protein 7.3 6.4-8.2 GM/DL Albumin 4.7 H 3.2-4.5 GM/DL My Orders Orders - SAMUELS,NARDA L DO Cbc With Automated Diff (11/08/20 14:09) Protime With Inr (11/08/20 14:09) Partial Thromboplastin Time (11/08/20 14:09) Comprehensive Metabolic Panel (11/08/20 14:09) Fibrin Degradation Products (11/08/20 14:09) Troponin I Fs (11/08/20 14:09) Ua Culture If Indicated (11/08/20 14:09) Chest 1 View Ap/Pa Only (11/08/20 14:09) Ekg Tracing (11/08/20 14:09) Nothing By Mouth (11/08/20 Lunch) Accucheck Stat ONCE (11/08/20 14:09) Ed Iv/Invasive Line Start (11/08/20 14:09) Vital Signs Stroke Patient Q15M (11/08/20 14:09) Intake & Output 06,14,22 (11/08/20 14:09) Monitor-Rhythm Ecg Trace Only (11/08/20 14:09) Dysphagia Screening Tool (11/08/20 14:09) Lipid Panel (11/09/20 06:00) Ct Angio Head/Neck (11/08/20 14:09) Iohexol Injection (Omnipaque 350 Mg/Ml 1 (11/08/20 14:45) Received Contrast (Hold Metformin- Contr (11/08/20 14:45) Sodium Chloride Flush (Catheter Flush Sy (11/08/20 14:45) Ns (Ivpb) (Sodium Chloride 0.9% Ivpb Bag (11/08/20 14:45) Drug Screen Stat (Urine) (11/08/20 15:33) Medications Given in ED Current Medications Medications Dose Ordered Sig/Shelia Route Start Time Stop Time Status Last Admin Dose Admin Iohexol 75 ml ONCE ONCE IV 11/08/20 14:45 11/08/20 14:46 DC 11/08/20 14:38 75 ML Sodium Chloride 10 ml NEEDED PRN IV 11/08/20 14:45 11/08/20 14:38 10 ML Sodium Chloride 100 ml ONCE ONCE IV 11/08/20 14:45 11/08/20 14:46 DC 11/08/20 14:38 80 ML Vital Signs/I&O 11/08/20 14:08 Temp 36.9 Pulse 87 Resp 20 B/P (MAP) 119/77 (91) Pulse Ox 99 O2 Delivery Room Air Progress Progress Note : Progress Note Patient's exam evolved throughout her stay. Upon initial arrival her left leg had very little movement with decreased sensation. Later she developed a little bit of movement with pain associated with movement. Patient also developed pain in her upper leg especially anterior thigh with numbness and tingling throughout her whole leg. Patient remained with the inability to walk with very little control of the left leg. I did call and discussed with neurologist at Dr. Clark. He suggested that we admit patient for PT OT evaluation. That we can consider an MRI of her lower back. He does not feel there is any central cause but more of a peripheral cause. Patient symptoms do not localize to one nerve root. She continues denies any pain in her low back or injury. I did call and discussed with Dr. Sinha who graciously accepted patient for admission at [facility]. Initial ECG Impression Date: Nov 08, 2020 Initial ECG Impression Time: 14:49 Initial ECG Rate: 79 Initial ECG Rhythm: Normal Sinus Initial ECG Impression: Normal Diagnostic Imaging Diagonstic Imaging: CT Comments [facility] [place], [place] NAME: LUÍS [facility] REC#: [id number] PT STATUS: REG ER : 1995 PHYSICIAN: NARDA SAMUELS DO ADMIT DATE: 11/08/20/ER FS Draft Date of Exam:11/08/20 CT ANGIO HEAD/NECK CLINICAL INDICATION: Patient with left-sided weakness and dizziness. EXAMS: 1: Head CT with and without IV contrast. Auto Exposure Controls were utilized during the CT exam to meet ALARA standards for radiation dose reduction. 2: CT angiogram of the head and neck performed with 75 cc of Omnipaque 350 IV contrast. Sagittal and coronal MIP reformations were created for better visualization of vascular anatomy. COMPARISON: None. FINDINGS: Head CT: There is no evidence of acute cerebral infarct, intracranial hemorrhage, or gross mass effect. There is no abnormal IV contrast enhancement. The brain parenchymal volume appears appropriate for patient's age. There is normal paz-white matter distinction. There is no significant midline shift or herniation. There is no evidence of hydrocephalus. The basal cisterns are unremarkable. The skull, extracranial soft tissue, and orbits are unremarkable. The paranasal sinuses are unremarkable. Temporal bones show no significant abnormality. CT Angiogram: Of note, the proximal aortic arch and proximal great vessels are not completely imaged on this exam. Visualized portions neck and [place] vascular structures are patent with no significant stenosis, vascular malformation, aneurysm, or dissection. The bilateral ACAs, MCAs, and certified ophthalmic technologist are patent. The dural venous sinuses are patent. The cervical vertebral arteries are patent. The bilateral cervical vertebral arteries are patent. Slightly dominant left vertebral artery is seen. IMPRESSION: 1: Unremarkable CT scan of the brain. 2: Unremarkable CT angiogram of the [place] and neck. Reviewed: Reviewed by Me, Reviewed/Discussed Diagonstic Imaging: Xray Plain Films/CT/US/NM/MRI: chest Comments [facility] [place], [place] NAME: LUÍS [facility] REC#: [id number] PT STATUS: REG ER : 1995 PHYSICIAN: NARDA SAMUELS DO ADMIT DATE: 11/08/20/ER FS Draft Date of Exam:11/08/20 CHEST 1 VIEW AP/PA ONLY CLINICAL INDICATION: Patient with left-sided weakness. EXAM: Portable chest x-ray upright view. COMPARISONS: Chest x-ray dated 05/06/2020. FINDINGS: Lungs/pleura: There is interval development of minimal discoid atelectasis involving the right lung base. Otherwise, lungs are clear. There is no pneumothorax. There is no pleural effusion. Mediastinum: Unremarkable. Pulmonary vasculature: Unremarkable. Heart: Unremarkable. Bones/extrathoracic soft tissue: Unremarkable. IMPRESSION: There is no radiographic evidence of acute cardiopulmonary process. There is interval development of minimal discoid atelectasis in the right lung base. Departure Communication (Admissions) Time/Spoke to Admitting Phy: 15:40 Okay to admit, PT OT consult Impression Primary Impression: Weakness of left lower extremity Disposition: 30 STILL A PATIENT Condition: Stable Admissions Decision to Admit Reason: Admit from ER (General) Decision to Admit/Date: Nov 08, 2020 Time/Decision to Admit Time: 15:40 Departure-Patient Inst. Referrals: [facility] (PCP/Family) Primary Care Physician NARDA SAMUELS DO Nov 08, 2020 14:09
[2020-11-08 14:23] LABS: BASOPHILS # (AUTO) 0.1 10^3/uL (0.0-0.1); BASOPHILS % (AUTO) 1 % (0-10); EOSINOPHILS # (AUTO) 0.1 10^3/uL (0.0-0.3); EOSINOPHILS % (AUTO) 1 % (0-10); HEMATOCRIT 42 % (35-52); HEMOGLOBIN 14.6 G/DL (11.5-16.0); LYMPHOCYTES % (AUTO) 23 % (12-44); MEAN CORPUSCULAR HEMOGLOBIN 31 PG (25-34); MEAN CORPUSCULAR HGB CONC 35 G/DL (32-36); MEAN CORPUSCULAR VOLUME 89 FL (80-99); MEAN PLATELET VOLUME 10.1 FL (7.4-10.4); MONOCYTES # (AUTO) 0.5 X 10^3 (0.0-1.0); MONOCYTES % (AUTO) 6 % (0-12); NEUTROPHILS # (AUTO) 5.9 X 10^3 (1.8-7.8); NEUTROPHILS % (AUTO) 69 % (42-75); PLATELET COUNT 245 10^3/uL (130-400); WHITE BLOOD COUNT 8.5 10^3/uL (4.3-11.0)
[2020-11-08 14:44] LABS: BUN/CREATININE RATIO 11; CARBON DIOXIDE 26 MMOL/L (21-32); CHLORIDE 104 MMOL/L (98-107); CREATININE SERUM 0.71 MG/DL (0.60-1.30); GFR ESTIMATED > 60; GLUCOSE 84 MG/DL (70-105); POTASSIUM 3.7 MMOL/L (3.6-5.0); SODIUM 139 MMOL/L (135-145)
--- NOTE | 2020-11-08 14:44 | Diagnostic Imaging Report ---
CLINICAL INDICATION: Patient with left-sided weakness. EXAM: Portable chest x-ray upright view. COMPARISONS: Chest x-ray dated 05/06/2020. FINDINGS: Lungs/pleura: There is interval development of minimal discoid atelectasis involving the right lung base. Otherwise, lungs are clear. There is no pneumothorax. There is no pleural effusion. Mediastinum: Unremarkable. Pulmonary vasculature: Unremarkable. Heart: Unremarkable. Bones/extrathoracic soft tissue: Unremarkable. IMPRESSION: There is no radiographic evidence of acute cardiopulmonary process. There is interval development of minimal discoid atelectasis in the right lung base. Dictated by: Dictated on workstation # [id number]
[2020-11-08 14:45] LABS: ALANINE AMINOTRANSFERASE 12 U/L (0-55); ALBUMIN 4.7 GM/DL (3.2-4.5); ALKALINE PHOSPHATASE 95 U/L (40-136); BILIRUBIN,TOTAL 0.3 MG/DL (0.1-1.0); CALCIUM 9.3 MG/DL (8.5-10.1); TOTAL PROTEIN 7.3 GM/DL (6.4-8.2)
[2020-11-08] MEDS ORDERED: CATHETER FLUSH 10 ML SYR IV PRN (14:45)
[2020-11-08] MEDS ORDERED: IOHEXOL 350 MG/ML 100 ML (OMNIPAQUE 350) VIAL IV ONE (14:45)
[2020-11-08] MEDS ORDERED: HOLD METFORMIN - RECEIVED CONTRAST 20 ML VIAL IV SCH (14:45)
[2020-11-08] MEDS ORDERED: NS 100 ML (IVPB) BAG IV ONE (14:45)
--- NOTE | 2020-11-08 14:56 | Diagnostic Imaging Report ---
CLINICAL INDICATION: Patient with left-sided weakness and dizziness. EXAMS: 1: Head CT with and without IV contrast. Auto Exposure Controls were utilized during the CT exam to meet ALARA standards for radiation dose reduction. 2: CT angiogram of the head and neck performed with 75 cc of Omnipaque 350 IV contrast. Sagittal and coronal MIP reformations were created for better visualization of vascular anatomy. COMPARISON: None. FINDINGS: Head CT: There is no evidence of acute cerebral infarct, intracranial hemorrhage, or gross mass effect. There is no abnormal IV contrast enhancement. The brain parenchymal volume appears appropriate for patient's age. There is normal paz-white matter distinction. There is no significant midline shift or herniation. There is no evidence of hydrocephalus. The basal cisterns are unremarkable. The skull, extracranial soft tissue, and orbits are unremarkable. The paranasal sinuses are unremarkable. Temporal bones show no significant abnormality. CT Angiogram: Of note, the proximal aortic arch and proximal great vessels are not completely imaged on this exam. Visualized portions neck and [place] vascular structures are patent with no significant stenosis, vascular malformation, aneurysm, or dissection. The bilateral ACAs, MCAs, and ecdis n navigation operator are patent. The dural venous sinuses are patent. The cervical vertebral arteries are patent. The bilateral cervical vertebral arteries are patent. Slightly dominant left vertebral artery is seen. IMPRESSION: 1: Unremarkable CT scan of the brain. 2: Unremarkable CT angiogram of the [place] and neck. Dictated by: Dictated on workstation # [id number]
[2020-11-08 15:00] LABS: FIBRIN DEGRADATION PRODUCTS 0.27 UG/ML (0.00-0.49); INR 0.9 (0.8-1.4); PROTHROMBIN TIME PATIENT 12.6 SEC (12.2-14.7)
[2020-11-08 16:33] LABS: CLARITY,URINE CLEAR; COLOR,URINE YELLOW; GLUCOSE, URINE (UA) NEGATIVE (NEGATIVE); KETONES,URINE NEGATIVE (NEGATIVE); NITRITE,URINE NEGATIVE (NEGATIVE); PROTEIN,URINE NEGATIVE (NEGATIVE)
[2020-11-08 16:34] LABS: BACTERIA,URINE NEGATIVE /HPF; BILIRUBIN,URINE NEGATIVE (NEGATIVE); LEUKOCYTE ESTERASE ,URINE NEGATIVE (NEGATIVE); WBC,URINE 0-2 /HPF
[2020-11-08 16:38] LABS: AMPHETAMINE SCREEN, URINE NEGATIVE (NEGATIVE); BARBITURATE SCREEN URINE NEGATIVE (NEGATIVE); BENZODIAZEPINES SCREEN URINE NEGATIVE (NEGATIVE); CANNABINOID SCREEN, URINE NEGATIVE (NEGATIVE); COCAINE SCREEN URINE NEGATIVE (NEGATIVE); METHADONE STAT NEGATIVE (NEGATIVE); METHAMPHETAMINE SCREEN URINE S NEGATIVE (NEGATIVE); OPIATE SCREEN URINE NEGATIVE (NEGATIVE); OXYCODONE STAT NEGATIVE (NEGATIVE); PROPOXYPHENE STAT NEGATIVE (NEGATIVE); TRICYCLIC ANTIDEPRESSANTS SCRE NEGATIVE (NEGATIVE)
[2020-11-08 17:50] VITALS: BP 115/85
[2020-11-08 20:00] VITALS: BP 121/82
[2020-11-08] MEDS ORDERED: HYDROcodone/APAP 5 MG/325 MG (LORTAB) TAB PO PRN (20:30)
[2020-11-08] MEDS ORDERED: LOPERAMIDE 2 MG (IMODIUM) TABLET PO PRN (20:30)
[2020-11-08] MEDS ORDERED: DOCUSATE SODIUM 100 MG (COLACE) CAP PO PRN (20:30)
[2020-11-08] MEDS ORDERED: ONDANSETRON 4 MG/2 ML (SDV) Z0FRAN IVP PRN (20:30)
[2020-11-08] MEDS ORDERED: ACETAMINOPHEN 500 MG TAB (TYLENOL) PO PRN (20:30)
[2020-11-08] MEDS ORDERED: MELATONIN 3 MG TABLET PO PRN (20:30)
[2020-11-08] MEDS ORDERED: ALPRAZolam 0.25 MG (XANAX) TAB PO PRN (20:30)
[2020-11-08] MEDS ORDERED: CALCIUM CARBONATE 500 MG (TUMS) TAB.CHEW PO PRN (20:30)
[2020-11-08] MEDS ORDERED: diphenhydrAMINE 25 MG TAB (BENADRYL) PO PRN (20:30)
[2020-11-08] MEDS: ACETAMINOPHEN 325 MG TABLET PO PRN (20:40)
[2020-11-08] MEDS: SENNA W/DOCUSATE (SENOKOT S) TABLET PO SCH (20:41)
[2020-11-09] VITALS: BP 112/53
[2020-11-09 04:00] VITALS: BP 118/67
[2020-11-09 05:45] LABS: BASOPHILS % (AUTO) 1 % (0-10); EOSINOPHILS # (AUTO) 0.2 10^3/uL (0.0-0.3); EOSINOPHILS % (AUTO) 2 % (0-10); HEMATOCRIT 41 % (35-52); HEMOGLOBIN 13.9 g/dL (11.5-16.0); LYMPHOCYTES # (AUTO) 2.2 10^3/uL (1.0-4.0); LYMPHOCYTES % (AUTO) 25 % (12-44); MEAN CORPUSCULAR HEMOGLOBIN 31 pg (25-34); MEAN CORPUSCULAR HGB CONC 34 g/dL (32-36); MEAN CORPUSCULAR VOLUME 91 fL (80-99); MEAN PLATELET VOLUME 10.3 fL (9.0-12.2); MONOCYTES # (AUTO) 0.5 10^3/uL (0.0-1.0); MONOCYTES % (AUTO) 6 % (0-12); NEUTROPHILS # (AUTO) 5.7 10^3/uL (1.8-7.8); NEUTROPHILS % (AUTO) 66 % (42-75); PLATELET COUNT 216 10^3/uL (130-400); WHITE BLOOD COUNT 8.6 10^3/uL (4.3-11.0)
[2020-11-09 06:10] LABS: ALBUMIN 4.2 GM/DL (3.2-4.5); CHLORIDE 109 MMOL/L (98-107); POTASSIUM 3.7 MMOL/L (3.6-5.0); SODIUM 136 MMOL/L (135-145)
[2020-11-09 06:11] LABS: CALCIUM 8.8 MG/DL (8.5-10.1)
[2020-11-09 06:12] LABS: GLUCOSE 97 MG/DL (70-105); TOTAL PROTEIN 6.6 GM/DL (6.4-8.2)
[2020-11-09 06:13] LABS: CARBON DIOXIDE 20 MMOL/L (21-32)
[2020-11-09 06:14] LABS: BILIRUBIN,TOTAL 0.4 MG/DL (0.1-1.0)
[2020-11-09 06:16] LABS: ALKALINE PHOSPHATASE 71 U/L (40-136); CREATININE SERUM 0.69 MG/DL (0.60-1.30); GFR ESTIMATED > 60
[2020-11-09 06:17] LABS: BUN/CREATININE RATIO 14
[2020-11-09 06:19] LABS: ALANINE AMINOTRANSFERASE 12 U/L (0-55)
[2020-11-09 08:00] VITALS: BP 111/74
[2020-11-09] MEDS ORDERED: GADOBUTROL 7.5 MMOL/7.5 ML (GADAVIST) VIAL IV ONE (08:00)
--- NOTE | 2020-11-09 08:21 | Diagnostic Imaging Report ---
PROCEDURE: MR imaging of the brain with and without contrast. TECHNIQUE: Multiplanar, multisequence MR imaging of the brain was performed with and without contrast. INDICATION: Left leg weakness. There are no prior studies available for comparison. FINDINGS: There is no mass, shift of the midline or hemorrhage to suggest an acute intracranial abnormality. There is no abnormal signal arising from the brain on the diffusion series to suggest an area of acute ischemia either. Furthermore there is no abnormal enhancement on the postcontrast series to indicate a neoplastic or infectious process. There is no abnormal signal in the periventricular white matter on the FLAIR series to suggest demyelinating disease either. The ventricles are not abnormally dilated. The sella is not enlarged and expected carotid flow voids are evident bilaterally. The orbits are symmetrical and within normal limits. There is mild mucosal thickening of the maxillary and ethmoid sinuses. The sinuses are otherwise generally clear. The 7th and 8th nerve complexes are unremarkable. The T2 axial series does show a smooth 2.5 cm defect involving the scalp over the left parietal bone near midline near the vertex the skull (axial T2 propeller series 4 image 17). There is no underlying mass in this area and there is no abnormality of the calvarium in this region either. This finding is of uncertain etiology although unlikely to be clinically significant. Clinical follow-up is recommended. IMPRESSION: 1. There is no evidence for acute intracranial abnormality. 2. There is no abnormal enhancement on the postcontrast series to suggest neoplastic or infectious process. There is no sign of demyelinating disease either. 3. The small defect in the scalp along the posterior aspect of the left parietal bone near midline near the vertex of the skull is of uncertain etiology. Considerations and recommendations as above. Dictated by: Dictated on workstation # [id number]
[2020-11-09] MEDS ORDERED: LORA10TA7 PO (08:45)
[2020-11-09] MEDS: SENNA W/DOCUSATE (SENOKOT S) TABLET PO SCH ×2 (10:00→21:42)
--- NOTE | 2020-11-09 11:31 | Physical Therapy Evaluation ---
PT Evaluation-General Medical Diagnosis Admission Date Nov 08, 2020 at 17:50 Medical Diagnosis: L Leg Weakness Onset Date: Nov 08, 2020 Therapy Diagnosis Therapy Diagnosis: Impaired strength and mobility Height/Weight Height (Feet): 4 Height (Inches): 11 Weight (Pounds): 128 Weight (Ounces): 6.0 Precautions Precautions/Isolations: Fall Prevention, Standard Precautions Weight Bear Status Left Lower Extremity: Left Referral Physician: Bharath Reason for Referral: Evaluation/Treatment Medical History Pertinent Medical History: Smoking Additional Medical History Preset hx of smoking Current History ER walk-in with complaint of leg weakness & dizziness Reviewed History: Yes Social History Home: Single Level Current Living Status: Children Entry Into Home: Level Entry Prior Prior Level of Function SCALE: Activities may be completed with or without assistive devices. 1-Ntdvlzdoay-rqmhqik completes the activity by him/herself with no assistance from a helper. 5-Set-up or Clean-up Assistance-helper sets up or cleans up; patient completes activity. [place] assists only prior to or following the activity. 4-Supervision or Touching Assistance-helper provides verbal cues and/or touching/steadying and/or contact guard assistance as patient completes activity. Assistance may be provided throughout the activity or intermittently. 3-Partial/Moderate Assistance-helper does LESS THAN HALF the effort. [place] lifts, holds or supports trunk or limbs, but provides less than half the effort. 2-Substantial/Maximal Assistance-helper does MORE THAN HALF the effort. [place] lifts or holds trunk or limbs and provides more than half the effort. 2-Vcuxyycto-anevpj does ALL the effort. Patient does none of the effort to complete the activity. Or, the assistance of 2 or more helpers is required for the patient to complete the activity. If activity was not attempted, code reason: 7-Patient Refused. 9-Not Applicable-not attempted and the patient did not perform the activity be fore the current illness, exacerbation or injury. 10-Not Attempted due to Environmental Limitations-(lack of equipment, weather restraints, etc.). 88-Not Attempted due to Medical Conditions or Safety Concerns. Bed Mobility: 6 Transfers (B,C,W/C): 6 Gait: 6 Stairs: 6 Indoor Mobility (Ambulation): Independent Prior Devices Use: None PT Evaluation-Current Subjective Patient reports "pins and needles" and "static" up her L LE with weight-bearing and leg extension. Patient notes the symptoms feel better when she "holds her leg close." (flexed position). Patient reports no pain complaints but notes di scomfort following MMT. Patient reports a similar episode happened 5 years ago after the of her second child, and symptoms disappeared after 4 days. Pt/Family Goals Return home at [facility] Objective Patient Orientation: Normal For Age ROM/Strength ROM Upper Extremities WFL grossly ROM Lower Extremities (R): WFL (L): lag present with ROM Strength Upper Extremities WFL grossly Strength Lower Extremities R: WFL L: grossly diminished (hip flexion 3+/5, knee extension 3+/5, knee flexion 3/5) (patient wasn't consistent during MMT with knee flexion/extension, DF/PF on L LE) Integumentary/Posture Integumentary see nursing report Posture mild kyphosis Sensory Vision: Functional Hearing: Functional Sensation Right Lower Extremit: Intact Sensation Left Lower Extremity: Intact Sensation Lower Extremities N/T down L LE Transfers Roll Left to Right (QC): 6 Sit to Lying (QC): 6 Lying to Sitting/Side of Bed(Q: 6 Sit to Stand (QC): 6 Sit <-> stand following MMT; patient was in obvious discomfort. Utilized walker with UE's to maintain balance until discomfort became more tolerable. Gait Does the Patient Walk?: Yes Mode of Locomotion: Walk Anticipated Mode of Locomotion: Walk Walk 10 feet (QC): 4 Walk 50 ft with 2 Turns(QC): 4 Walk 150 ft (QC): 4 Distance: 200' Gait Assistive Device: FWW Comments/Gait Description Patient demonstrates a step-to gait on L, with antalgic pattern. Patient exhibited slow gait with no ten loss of balance. Patient was able to activate quad, heel-toe ambulation with FWW Balance Sitting Static: Normal Sitting Dynamic: Normal Standing Static: Good Standing Dynamic: Good Assessment/Needs Patient will benefit from PT to maintain endurance and improve functional mobility. Rehab Potential: Fair PT Remote Operations Producer Goals Nursing Home Goals PT Remote Operations Producer Goals Time Frame: Nov 10, 2020 Roll Left & Right (QC): 6 Sit to Lying (QC): 6 Lying-Sitting on Side/Bed(QC): 6 Sit to Stand (QC): 6 Chair/Prn-hh-Nyegl Xfer(QC): 6 Toilet Transfer (QC): 6 Car Transfer (QC): 6 Walk 10 feet (QC): 6 Walk 50ft with 2 Turns (QC): 6 Walk 150 ft (QC): 6 PT Plan Treatment/Plan Treatment Plan: Continue Plan of Care Treatment Plan: Education, Functional Activity Jamie, Functional Strength, Gait, Safety, Therapeutic Exercise Treatment Duration: Nov 10, 2020 Frequency: 2 times per week Estimated Hrs Per Day: .25 hour per day Discharge Recommendations Therapy Discharge Recommendati: Home & Family Time/GCodes Time In: 1015 Time Out: 1040 Total Billed Treatment Time: 25 Total Billed Treatment 1 visit: EVM: 15' GT: 10' MEDARDO RODRIGUEZ PT Nov 09, 2020 11:31
[2020-11-09 12:00] VITALS: BP 112/84
--- NOTE | 2020-11-09 12:02 | Occupational Therapy Eval ---
OT Evaluation-General/PLF Medical Diagnosis Admission Date Nov 08, 2020 at 17:50 Medical Diagnosis: L Leg Weakness Onset Date: Nov 08, 2020 Therapy Diagnosis Therapy Diagnosis: Decreased ADL status Height/Weight Height (Feet): 4 Height (Inches): 11 Weight (Pounds): 128 Weight (Ounces): 6.0 Precautions Precautions/Isolations: Fall Prevention, Standard Precautions Referral Physician: Bharath Referral Reason: Activity Tolerance, Self Care, Evaluation/Treatment, Strengthening/ROM Medical History Pertinent Medical History: DM, Smoking Additional Medical History DM I, anxiety Current History Pt admits 11/08 with dizziness, LLE heaviness/ dragging. No UE weakness. CT revealed no cerebral infarct/ unremarkable. Reviewed History: Yes Social History Home: Single Level Current Living Status: Children Entry Into Home: Level Entry ADL-Prior Level of Function SCALE: Activities may be completed with or without assistive devices. 9-Oprqrytzua-jeeiwea completes the activity by him/herself with no assistance from a helper. 5-Set-up or Clean-up Assistance-helper sets up or cleans up; patient completes activity. [place] assists only prior to or following the activity. 4-Supervision or Touching Assistance-helper provides verbal cues and/or touching/steadying and/or contact guard assistance as patient completes activity. Assistance may be provided throughout the activity or intermittently. 3-Partial/Moderate Assistance-helper does LESS THAN HALF the effort. [place] lifts, holds or supports trunk or limbs, but provides less than half the effort. 2-Substantial/Maximal Assistance-helper does MORE THAN HALF the effort. [place] lifts or holds trunk or limbs and provides more than half the effort. 9-Blgleblpn-mrnfuy does ALL the effort. Patient does none of the effort to complete the activity. Or, the assistance of 2 or more helpers is required for the patient to complete the activity. If activity was not attempted, code reason: 7-Patient Refused. 9-Not Applicable-not attempted and the patient did not perform the activity before the current illness, exacerbation or injury. 10-Not Attempted due to Environmental Limitations-(lack of equipment, weather restraints, etc.). 88-Not Attempted due to Medical Conditions or Safety Concerns. ADL PLOF Comments Pt IND within home/ drives/ works/ has 3 children at home. Mother works nights but lives beside pt Self Care: Independent Functional Cognition: Independent Occupation: janitorial staff [address] [address] Self: Yes OT Current Status Subjective Pt AxO. Provides hx. Pt states, "I just wanna go home." Pt denies pain, though positional tingling/ numbness of LLE including in stance and in LE extension Mental Status/Objective Patient Orientation: Person, Place, Situation, Normal For Age Current Glasses/Contacts: Yes Hearing Aids: No Dentures/Partials: No Hand Dominance: Right Upper Extremity ROM WFL BUE Upper Extremity Coordination WFL BUE Upper Extremity Sensation WFL BUE; decreased LLE Upper Extremity Strength WFL BUE (4/5) ADL-Treatment Eating (QC): 6 Oral Hygiene (QC): 6 Upper Body Dressing (QC): 6 Lower Body Dressing (QC): 4 (SUP based on clinical findings.) On/Off Footwear (QC): 6 (IND EOB) Toileting Hygiene (QC): 4 (SUP. Pt states able to complete IND here during this admission) Other Treatments Pt completes bed mob from supine to sit with SBA. Pt able to doff/ don LLE sock and complete sit to stand with SBA at walker level. Pt stands ~30 seconds and states, "L does not feel good." returns to sit, states increased tingling with ext/ stance on LLE. Pt does not have walker at home, desires to d/c home and continue work. Pt educated on safety measures to ensure no fall/ increased injury from fall at home. Pt agrees. Pt's pain/ paresthesias positional. Per clinical judgment, likely nerve related. Pt completes hx and returns to EOB. Pt educated on no skilled OT needed at this time. Pt agrees. D/c pt. Left EOB. Education OT Patient Education: Correct positioning, Purpose of tx/functional activities, Safety issues Teaching Recipient: Patient Teaching Methods: Demonstration, Discussion Response to Teaching: Verbalize Understanding, Return Demonstration OT Supervisor Payroll Goals Snf Goals 1=Demonstrate adherence to instructed precautions during ADL tasks. 2=Patient will verbalize/demonstrate understanding of assistive devices/modifications for ADL. 3=Patient will improve strength/tolerance for activity to enable patient to perform ADL's. OT Education/Plan Problem List/Assessment Assessment: No Skilled OT Needs ID'd Discharge Recommendations Plan/Recommendations: Discharge/Goals Met Therapy Discharge Recommendati: Intermittent Supervision, Home & Family Treatment Plan/Plan of Care Treatment,Training & Education: Yes Patient would benefit from OT for education, treatment and training to promote independence in ADL's, mobility, safety and/or upper extremity function for ADL's. Plan of Care: OTHER (eval and d/c.) Treatment Duration: Nov 09, 2020 Frequency: 1 time per week (eval and d/c) Rehab Potential: Fair Time/GCodes Start Time: 11:37 Stop Time: 11:51 Total Time Billed (hr/min): 14 Billed Treatment Time 1, EVM (14) D/c. Pt at PLOF with ADLs in seated position. THOR AMES OTR Nov 09, 2020 12:02
[2020-11-09] MEDS ORDERED: methylPREDNISolone 40 MG/ML (Solu-MEDROL) VIAL IV ONE (13:00)
--- NOTE | 2020-11-09 14:44 | Diagnostic Imaging Report ---
PROCEDURE: MRI lumbar spine. TECHNIQUE: Multiplanar, multisequence MRI of the lumbar spine was performed without contrast. INDICATION: Left leg weakness. There are no prior MRI examinations available for comparison. The T2 parasagittal images show the vertebral body heights and alignment to be generally within normal limits. The intervertebral spaces are fairly well-maintained. There is a slight disc bulge centrally at L4-L5. The disc flattens the ventral aspect of the thecal sac and narrows the AP diameter to approximately 8.7 mm. The axial images reveal the cross-sectional area of the thecal sac at this level is 112.2 sq mm (normal 100 sq mm or greater). Therefore I do not feel there is any significant central stenosis at this level. There is no neural foraminal narrowing identified either. The remainder of the lumbar spine is unremarkable for spinal stenosis or nerve root encroachment. There is no abnormal signal arising from the cord or other vertebral bodies to indicate an acute abnormality. There is no sign of a paraspinal mass. IMPRESSION: 1. There are mild degenerative changes at the L4-L5 level. There is no evidence for a high-grade central stenosis or for any significant neural foraminal narrowing at L4-L5 however. 2. The remainder of the lumbar spine is unremarkable for spinal stenosis or nerve root encroachment. 3. There is no acute bony abnormality identified nor is there any sign of a cord lesion. Dictated by: Dictated on workstation # [id number]
[2020-11-09 15:27] VITALS: BP 117/72
[2020-11-09] MEDS: methylPREDNISolone 40 MG/ML (Solu-MEDROL) VIAL IV SCH (18:13)
[2020-11-09] MEDS: ACETAMINOPHEN 325 MG TABLET PO PRN (18:49)
[2020-11-09 19:03] VITALS: BP 109/73
[2020-11-10 00:43] VITALS: BP 123/61
[2020-11-10] MEDS: methylPREDNISolone 40 MG/ML (Solu-MEDROL) VIAL IV SCH ×3 (00:45→13:46)
[2020-11-10 04:43] VITALS: BP 101/58
[2020-11-10 05:58] LABS: BASOPHILS % (AUTO) 0 % (0-10); EOSINOPHILS % (AUTO) 0 % (0-10); HEMATOCRIT 43 % (35-52); HEMOGLOBIN 14.7 g/dL (11.5-16.0); LYMPHOCYTES # (AUTO) 0.6 10^3/uL (1.0-4.0); LYMPHOCYTES % (AUTO) 4 % (12-44); MEAN CORPUSCULAR HEMOGLOBIN 31 pg (25-34); MEAN CORPUSCULAR HGB CONC 34 g/dL (32-36); MEAN CORPUSCULAR VOLUME 90 fL (80-99); MEAN PLATELET VOLUME 10.8 fL (9.0-12.2); MONOCYTES # (AUTO) 0.1 10^3/uL (0.0-1.0); MONOCYTES % (AUTO) 1 % (0-12); NEUTROPHILS # (AUTO) 15.4 10^3/uL (1.8-7.8); NEUTROPHILS % (AUTO) 95 % (42-75); PLATELET COUNT 225 10^3/uL (130-400); WHITE BLOOD COUNT 16.3 10^3/uL (4.3-11.0)
[2020-11-10 06:05] LABS: ALBUMIN 4.5 GM/DL (3.2-4.5)
[2020-11-10 06:06] LABS: CHLORIDE 108 MMOL/L (98-107); POTASSIUM 3.8 MMOL/L (3.6-5.0); SODIUM 136 MMOL/L (135-145)
[2020-11-10 06:07] LABS: CALCIUM 9.3 MG/DL (8.5-10.1)
[2020-11-10 06:08] LABS: GLUCOSE 138 MG/DL (70-105); TOTAL PROTEIN 7.4 GM/DL (6.4-8.2)
[2020-11-10 06:09] LABS: CARBON DIOXIDE 19 MMOL/L (21-32)
[2020-11-10 06:10] LABS: BILIRUBIN,TOTAL 0.4 MG/DL (0.1-1.0)
[2020-11-10 06:11] LABS: ALKALINE PHOSPHATASE 78 U/L (40-136)
[2020-11-10 06:12] LABS: CREATININE SERUM 0.61 MG/DL (0.60-1.30); GFR ESTIMATED > 60
[2020-11-10 06:13] LABS: BUN/CREATININE RATIO 16
[2020-11-10 06:14] LABS: ALANINE AMINOTRANSFERASE 13 U/L (0-55)
[2020-11-10 06:19] LABS: LYMPHOCYTES % (MANUAL) 5 %; NEUTROPHILS % (MANUAL) 95 %; RBC MORPH NORMAL
[2020-11-10 07:31] VITALS: BP 107/72
[2020-11-10] MEDS: SENNA W/DOCUSATE (SENOKOT S) TABLET PO SCH (08:47)
[2020-11-10] MEDS: ACETAMINOPHEN 325 MG TABLET PO PRN (10:21)
--- NOTE | 2020-11-10 10:33 | Physical Therapy Progress Note ---
Therapy Progress Note Patient reports no current N/T upon today's date. PT to dismiss patient from services at this time due to independent PLOF. MEDARDO RODRIGUEZ PT Nov 10, 2020 10:32
[2020-11-10 11:42] VITALS: BP 118/70
[2020-11-10] MEDS ORDERED: METH4TAB10 PO (11:59)
--- NOTE | 2020-11-10 12:03 | Short Stay Summary-Hospitalist ---
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 CVA w/u ensued and [facility] contacted and recommended MRI and observation. Patient had MRI revealed no CVA. L spine revealed no impingement and steroids helped with pain. PT initiated and she performed well. Patient was deemed stable for DC. Source: patient Date Seen 11/09/20 Time Seen by a Provider: 10:00 Attending Physician Sandi Sinha DO [facility] Referring Physician Date of Admission Nov 08, 2020 at 17:50 Home Medications & Allergies Home Medications Reviewed patient Home Medication Reconciliation performed by pharmacy medication reconciliations remote sensing technician and/or nursing. Patients Allergies have been reviewed. Allergies Allergies Coded Allergies Penicillins (Verified Allergy, Unknown, 01/08/16) doxycycline (Verified Allergy, Unknown, 01/08/16) latex (Verified Allergy, Unknown, 11/08/20) Past Ldyumqn-Qfqmfi-Nupouv Hx Past Med/Social Hx: Reviewed Nursing Past Med/Soc Hx, Reviewed and Corrections made Patient Social History Marrital Status: single Employed/Student: employed Alcohol Use: Denies Use Recreational Drug Use: No Smoking Status: Former Smoker Type Used: Cigarettes 2nd Hand Smoke Exposure: No Recent Foreign Travel: No Contact w/other who traveled: No Recent Hopitalizations: No Recent Infectious Disease Expo: No Immunizations Up To Date Tetanus Booster (TDap): Less than 5yrs Date of Influenza Vaccine: Jun 18, 2016 Seasonal Allergies Seasonal Allergies: No Past Medical History Surgeries: Abdominal, Adenoidectomy, Appendectomy, Ear Surgery, Gallbladder Reproductive: Yes ("precancerous cells uterus") Psychosocial: Anxiety History of Blood Disorders: No Family History Cardiovascular disease 19 FATHER Diabetes mellitus 19 MOTHER (gestational dm) Neoplasm 19 MOTHER (cervical ca ) Psychosocial problem G8 BROTHER (2 brothers w/ autism) Visual disorder G8 BROTHER (brother blind ) Cancer, Other Conditions/Hx Review of Systems Constitutional: see HPI Musculoskeletal: back pain Psychiatric/Neurological: Weakness Physical Exam Physical Exam Vital Signs Vital Signs - First Documented 11/08/20 14:08 Temp 36.9 Pulse 87 Resp 20 B/P (MAP) 119/77 (91) Pulse Ox 99 O2 Delivery Room Air Capillary Refill : Less Than 3 Seconds Height, Weight, BMI Height: 4'11" Weight: 128lbs. 6.0oz. [id number]; 28.25 BMI Method:Stated General Appearance: No Apparent Distress, WD/WN Eyes: Bilateral Eye Normal Inspection, Bilateral Eye PERRL HEENT: PERRL/EOMI, TMs Normal, Normal ENT Inspection, Pharynx Normal Neck: Full Range of Motion, Normal Inspection, Non Tender, Supple, Carotid Bruit Respiratory: Chest Non Tender, Lungs Clear, Normal Breath Sounds, No Accessory Muscle Use, No Respiratory Distress Cardiovascular: Regular Rate, Rhythm, No Edema, No Gallop, No JVD, No Murmur, Normal Peripheral Pulses Gastrointestinal: Normal Bowel Sounds, No Organomegaly, No Pulsatile Mass, Non Tender, Soft Back: Normal Inspection, No CVA Tenderness, No Vertebral Tenderness Extremity: Normal Capillary Refill, Normal Inspection, Normal Range of Motion, Non Tender, No Calf Tenderness, No Pedal Edema Neurologic/Psychiatric: Alert, Oriented x3, No Motor/Sensory Deficits, Normal Mood/Affect Reflexes: 2+ Knee (R), 2+ Knee (L), 2+ Ankle (R), 2+ Ankle (L) Skin: Normal Color, Warm/Dry Lymphatic: No Adenopathy Results Results/Procedures Labs Laboratory Tests 11/08/20 14:15 11/09/20 05:10 11/10/20 05:22 Patient resulted labs reviewed. Short Stay Diagnosis Discharge Diagnosis-Short Stay Admission Diagnosis Assessment: Left leg weakness and pain with negative CVA w/u Final Discharge Diagnosis Assessment: Left leg weakness and pain with negative CVA w/u now resolved with steroids and PT Conclusion Plan DC home Diagnosis/Problems Diagnosis/Problems (1) Weakness of left lower extremity Status: Acute (2) Stress reaction Status: Acute SANDI SINHA DO Nov 10, 2020 12:03
[2020-11-10 13:40] VITALS: BP 118/70
== END 2020-11-10 13:40 | disposition home or self-care (01) | DRG 93 ==
LOC: EDUNIT# 14:01 → ER FS 14:03 → 4TH 17:50
PROVIDERS: ADMIT Internal Medicine; ATTEND Internal Medicine
DX: R29.818 Other symptoms and signs involving the nervous system (principal); M79.605 Pain in left leg; F41.9 Anxiety disorder, unspecified; F43.9 Reaction to severe stress, unspecified; Z88.0 Allergy status to penicillin; Z88.1 Allergy status to other antibiotic agents; Z91.040 Latex allergy status; Z87.891 Personal history of nicotine dependence; Z90.49 Acquired absence of other specified parts of digestive tract; R20.0 Anesthesia of skin
CPT/HCPCS: 36415; 70496; 70498; 70553; 71045; 72148; 80053; 80306; 81000; 82962; 84484; 85007; 85025; 85027; 85379; 85610; 85730; 93005; 93041

== ENCOUNTER 2022-01-21 16:04 | Emergency (ER) | payer MEDICAID, OTHER ==
[~2022-01-21] VITALS: Ht 149.9 cm; Wt 70.3 kg
[~2022-01-21 16:04] MED LIST changes: +LORA10TA7 PO; +METH4TAB10 PO
[2022-01-21] MEDS ORDERED: KETOROLAC 30 MG/ML VIAL IVP STA (16:19)
[2022-01-21] MEDS ORDERED: NS IV 1000 ML 1,000 ML IV STA (16:19)
[2022-01-21 16:52] LABS: BASOPHILS % (AUTO) 0 % (0-10); EOSINOPHILS # (AUTO) 0.2 10^3/uL (0.0-0.3); EOSINOPHILS % (AUTO) 2 % (0-10); HEMATOCRIT 45 % (35-52); HEMOGLOBIN 15.4 g/dL (11.5-16.0); LYMPHOCYTES # (AUTO) 2.1 10^3/uL (1.0-4.0); LYMPHOCYTES % (AUTO) 21 % (12-44); MEAN CORPUSCULAR HEMOGLOBIN 31 pg (25-34); MEAN CORPUSCULAR HGB CONC 35 g/dL (32-36); MEAN CORPUSCULAR VOLUME 90 fL (80-99); MEAN PLATELET VOLUME 10.2 fL (9.0-12.2); MONOCYTES # (AUTO) 0.5 10^3/uL (0.0-1.0); MONOCYTES % (AUTO) 5 % (0-12); NEUTROPHILS # (AUTO) 7.4 10^3/uL (1.8-7.8); NEUTROPHILS % (AUTO) 72 % (42-75); PLATELET COUNT 267 10^3/uL (130-400); WHITE BLOOD COUNT 10.2 10^3/uL (4.3-11.0)
[2022-01-21 17:07] LABS: INR 0.9 (0.8-1.4); PROTHROMBIN TIME PATIENT 12.6 SEC (12.2-14.7)
[2022-01-21 17:14] LABS: FIBRIN DEGRADATION PRODUCTS 0.77 UG/ML (0.00-0.49)
[2022-01-21 17:16] LABS: ALKALINE PHOSPHATASE 103 U/L (40-136); BILIRUBIN,TOTAL 0.5 MG/DL (0.1-1.0); BUN/CREATININE RATIO 11; CALCIUM 9.2 MG/DL (8.5-10.1); CARBON DIOXIDE 25 MMOL/L (21-32); CHLORIDE 103 MMOL/L (98-107); CREATININE SERUM 0.62 MG/DL (0.60-1.30); GFR ESTIMATED 126; GLUCOSE 88 MG/DL (70-105); POTASSIUM 3.6 MMOL/L (3.6-5.0); SODIUM 140 MMOL/L (135-145)
[2022-01-21 17:17] LABS: ALANINE AMINOTRANSFERASE 17 U/L (0-55); TOTAL PROTEIN 7.7 GM/DL (6.4-8.2)
[2022-01-21] MEDS ORDERED: ENOXAPARIN 80 MG/0.8 ML (LOVENOX) SYR SC STA (17:52)
--- NOTE | 2022-01-21 18:29 | ED Lower Extremity ---
General Chief Complaint: Lower Extremity Stated Complaint: R THIGH PAIN Nursing Triage Note: PT AMBULATE TO ROOM FS02 WITHOUT DIFFICULTY WITH C/O RIGHT LEG PAIN. PT REPORTS SWELLING AND PAIN TO RIGHT THIGH WITH PAIN TO RIGHT LEG. PT STATES SHE HAD HER MOM LOOK AT IT AND WAS TOLD IT MAY BE A BLOOD CLOT. Source: patient History of Present Illness Date Seen by Provider: Jan 21, 2022 Time Seen by Provider: 16:06 Initial Comments 26-year-old female presenting with complaint of pain to her right thigh and leg. She feels that there is increased pain to the medial aspect of her right thigh but denies any direct trauma or injury. She also is complaining of generalized headache. She had asked her mother about the muscle pain in her right leg and her mother recommended she come be seen in the emergency department. Patient does not have any history of DVT or blood clots but her mother has a history of DVTs and blood clots. Her mother told her that it likely was a blood clot causing her to have pain in her thigh. 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 She has been doing this for a while now but certainly the strain could contribute to muscle pain. Onset: this morning Severity: moderate Pain/Injury Location: right leg, right thigh Method of Injury: unknown Modifying Factors: Worse With Movement Allergies and Home Medications Allergies Coded Allergies: Penicillins (Verified Allergy, Unknown, 01/08/16) doxycycline (Verified Allergy, Unknown, 01/08/16) latex (Verified Allergy, Unknown, 11/08/20) Patient Home Medication List Home Medication List Reviewed: Yes Loratadine (Loratadine) 10 Mg Tablet, 10 MG PO DAILY PRN for ALLERGY SYMPTOMS, (Reported) Entered as Reported by: ZENAIDA CHAU on 11/09/20 0859 Methylprednisolone (Methylprednisolone Dose Pack) 4 Mg Tab.ds.pk, 4 MG PO UD Prescribed by: CHRISTA ERICKSON on 11/10/20 1159 Review of Systems Constitutional: No chills, No fever EENTM: no symptoms reported Respiratory: no symptoms reported Cardiovascular: no symptoms reported Gastrointestinal: no symptoms reported Genitourinary: no symptoms reported Musculoskeletal: see HPI Skin: change in color (Feels she has increased redness to the right thigh compared to the left. When she stands there is a kobuk of discoloration around her distal thigh on the right side) Psychiatric/Neurological: See HPI, Anxiety, Headache Past Nvyrzlu-Dhlagr-Cklpci Hx Patient Social History Tobacco Use?: No Smoking Status: Never a Smoker Smokeless Tobacco Frequency: Never a User Use of E-Cig and/or Vaping dev: No Use of E-Cig and/or Vaping Jignesh: Never a User Substance use?: No Alcohol Use?: Yes Alcohol Frequency: Once in a while Immunizations Up To Date Tetanus Booster (TDap): Less than 5yrs Seasonal Allergies Seasonal Allergies: No Past Medical History Surgeries: Yes (tubes in ears) Abdominal, Adenoidectomy, Appendectomy, Ear Surgery, Gallbladder Respiratory: No Cardiac: No Neurological: No Reproductive Disorders: Yes ("precancerous cells uterus") Genitourinary: No Gastrointestinal: No Musculoskeletal: No Endocrine: Yes (gestational diabetes) HEENT: No Cancer: No Psychosocial: Yes Anxiety Integumentary: Yes (current rash on back/chest) Blood Disorders: No Family Medical History Cardiovascular disease 19 FATHER Diabetes mellitus 19 MOTHER (gestational dm) Neoplasm 19 MOTHER (cervical ca ) Psychosocial problem G8 BROTHER (2 brothers w/ autism) Visual disorder G8 BROTHER (brother blind ) Cancer, Other Conditions/Hx Physical Exam Vital Signs Vital Signs - First Documented 01/21/22 16:08 Temp 36.8 Pulse 84 Resp 18 B/P (MAP) 149/98 (115) O2 Delivery Room Air Capillary Refill : Less Than 3 Seconds Height, Weight, BMI Height: 4'11" Weight: 128lbs. 6.0oz. 58.935113mu; 31.00 BMI Method:Stated General Appearance: WD/WN, no apparent distress HEENT: PERRL/EOMI, pharynx normal Neck: non-tender, full range of motion, supple, normal inspection Cardiovascular: normal peripheral pulses, regular rate, rhythm Respiratory: chest non-tender, lungs clear, normal breath sounds, no respiratory distress, no accessory muscle use Legs: right leg soft tissue tenderness (Tender to palpation on the right medial thigh) Neurologic/Tendon: normal sensation, normal motor functions, normal tendon fun ctions Neurologic/Psychiatric: alert, oriented x 3 Skin: warm/dry; No ecchymosis Progress/Results/Core Measures Results/Orders Lab Results Laboratory Tests Test 01/21/22 16:25 Range/Units White Blood Count 10.2 4.3-11.0 10^3/uL Red Blood Count 4.94 3.80-5.11 10^6/uL Hemoglobin 15.4 11.5-16.0 g/dL Hematocrit 45 35-52 % Mean Corpuscular Volume 90 80-99 fL Mean Corpuscular Hemoglobin 31 25-34 pg Mean Corpuscular Hemoglobin Concent 35 32-36 g/dL Red Cell Distribution Width 12.6 10.0-14.5 % Platelet Count 267 130-400 10^3/uL Mean Platelet Volume 10.2 9.0-12.2 fL Immature Granulocyte % (Auto) 0 % Neutrophils (%) (Auto) 72 42-75 % Lymphocytes (%) (Auto) 21 12-44 % Monocytes (%) (Auto) 5 0-12 % Eosinophils (%) (Auto) 2 0-10 % Basophils (%) (Auto) 0 0-10 % Neutrophils # (Auto) 7.4 1.8-7.8 10^3/uL Lymphocytes # (Auto) 2.1 1.0-4.0 10^3/uL Monocytes # (Auto) 0.5 0.0-1.0 10^3/uL Eosinophils # (Auto) 0.2 0.0-0.3 10^3/uL Basophils # (Auto) 0.0 0.0-0.1 10^3/uL Immature Granulocyte # (Auto) 0.0 0.0-0.1 10^3/uL Prothrombin Time 12.6 12.2-14.7 SEC INR Comment 0.9 0.8-1.4 Activated Partial Thromboplast Time 28 24-35 SEC D-Dimer 0.77 H 0.00-0.49 UG/ML Sodium Level 140 135-145 MMOL/L Potassium Level 3.6 3.6-5.0 MMOL/L Chloride Level 103 98-107 MMOL/L Carbon Dioxide Level 25 21-32 MMOL/L Anion Gap 12 5-14 MMOL/L Blood Urea Nitrogen 7 7-18 MG/DL Creatinine 0.62 0.60-1.30 MG/DL Estimat Glomerular Filtration Rate 126 BUN/Creatinine Ratio 11 Glucose Level 88 70-105 MG/DL Calcium Level 9.2 8.5-10.1 MG/DL Corrected Calcium 8.5-10.1 MG/DL Magnesium Level 2.0 1.6-2.4 MG/DL Total Bilirubin 0.5 0.1-1.0 MG/DL Aspartate Amino Transf (AST/SGOT) 15 5-34 U/L Alanine Aminotransferase (ALT/SGPT) 17 0-55 U/L Alkaline Phosphatase 103 40-136 U/L Myoglobin < 21.0 10.0-92.0 NG/ML Total Protein 7.7 6.4-8.2 GM/DL Albumin 5.0 H 3.2-4.5 GM/DL My Orders Orders - BUD OMER MD Cbc With Automated Diff (01/21/22 16:19) Magnesium (01/21/22 16:19) Comprehensive Metabolic Panel (01/21/22 16:19) Myoglobin Serum (01/21/22 16:19) Protime With Inr (01/21/22 16:19) Partial Thromboplastin Time (01/21/22 16:19) Ed Iv/Invasive Line Start (01/21/22 16:19) Fibrin Degradation Products (01/21/22 16:19) Ns Iv 1000 Ml (Sodium Chloride 0.9%) (01/21/22 16:19) Ketorolac Injection (Toradol Injection) (01/21/22 16:19) Enoxaparin Injection (Lovenox Injection) (01/21/22 17:52) Vital Signs/I&O 01/21/22 16:08 Temp 36.8 Pulse 84 Resp 18 B/P (MAP) 149/98 (115) O2 Delivery Room Air Blood Pressure Mean: 115 Progress Progress Note #1: Progress Note Counseled patient that I did not have ultrasound at this hour but will order D- dimer and basic labs. For her headache will administer 1 L normal saline IV fluid for hydration and try Toradol 30 mg IV for pain. Progress Note #2: Progress Note Labs show any acute significant abnormality to the CBC or chemistry. Her D- dimer was slightly elevated at 0.7. With the slight elevation will give information about obtaining ultrasound to further evaluate for possible DVT. We will also administer Lovenox at 1 mg/kg here in the emergency department since she has additional treatment for possible blood clot. Stressed importance of calling in the morning to get test set up either at [place] or [facility]. Given phone numbers for both locations. A order was sent with the patient for the outpatient test. If it does come back positive they will contact the on-call ER doctor to help initiate medication and treatment as the patient does not have a primary care provider. She did state that her headache was improved with treatment here in the ED. Departure Impression Primary Impression: Elevated d-dimer Additional Impressions: Right thigh pain Right leg pain Family history of DVT Disposition: HOME, SELF-CARE Condition: Stable Departure-Patient Inst. Decision time for Depature: 18:25 Referrals: [facility] (PCP/Family) Primary Care Physician Patient Instructions: Deep Vein Thrombosis (DVT) ED, Leg Muscle Strain ED Add. Discharge Instructions: Your test today showed a slight elevation of your D-dimer which is a test that helps to screen for possible blood clots. It does not say that you for sure have a blood clot but it is enough that we would want to treat you with a blood thinner and get an ultrasound tomorrow. You could take ice and complain that to the leg and alternate with heat if needed to help with pain. You could also take acetaminophen 650 mg every 6 janusz rs as needed for pain. Call radiology scheduling in the morning at [phone]. Call this number between 7 and 7:30 AM and see if they could schedule the ultrasound for you in the morning. This would be at the radiology department in [facility]. Alternatively, you could call the [facility] at [phone] in the morning after 8 to 8:30 in the morning and let them know you needed to have an ultrasound done by Lori. Make sure to take your paper copy of the order with you go to [place] or here to [facility]. Check with your mom and family to see if there is a blood clotting disorder such as factor V Leiden, protein C deficiency, protein S deficiency or a genetic cause for blood clots. This information would be helpful for the traffic survey technician as well as when you follow-up about the testing. Consider establishing care with a primary physician such as at the [facility]. You would still call [phone] and let them know you needed to establish care with a primary provider All discharge instructions reviewed with patient and/or family. Voiced understanding. Work/School Note: Work Release Form Date Seen in the Emergency Department: Jan 21, 2022 Return to Work: Jan 23, 2022 Restrictions: No Restrictions BUD OMER MD Jan 21, 2022 18:29
[2022-01-21 18:37] VITALS: BP 131/67
== END 2022-01-21 18:37 | disposition home or self-care (01) ==
LOC: EDUNIT# 16:04 → ER FS 16:05
DX: R79.1 Abnormal coagulation profile (principal); M79.651 Pain in right thigh; M79.604 Pain in right leg; Z83.2 Family history of diseases of the blood and blood-forming organs and certain disorders involving the immune mechanism
CPT/HCPCS: 36415; 80053; 83735; 83874; 85025; 85379; 85610; 85730

== ENCOUNTER 2022-01-22 01:43 | Emergency (ER) | payer MEDICAID ==
[~2022-01-22] VITALS: Ht 149.8 cm; Wt 65.3 kg
[2022-01-22] MEDS ORDERED: PANTOPRAZOLE 40 MG (PROTONIX) VIAL IV STA (01:56)
[2022-01-22] MEDS ORDERED: NS 100 ML (IVPB) BAG IV ONE (02:00)
[2022-01-22] MEDS ORDERED: HOLD METFORMIN - RECEIVED CONTRAST 20 ML VIAL IV SCH (02:00)
[2022-01-22] MEDS ORDERED: IOHEXOL 350 MG/ML 150 ML (OMNIPAQUE 350) VIAL IV ONE (02:00)
--- NOTE | 2022-01-22 02:09 | ED General ---
General Stated Complaint: SOA Source of Information: Patient, EMS, Old Records History of Present Illness Date Seen by Provider: Jan 22, 2022 Time Seen by Provider: 01:43 Initial Comments 26 yo female presents by EMS with complaint of heaviness in epigastric area. She was seen earlier this evening in the emergency department for concern of right leg pain. At that time all of her labs had looked normal other than she had mild elevation of her D-dimer to 0.7. Since the D-dimer was slightly elevated she was given a dose of Lovenox and an outpatient order to have an ultrasound to evaluate for possible DVT. She states that she went home and took Tylenol and went to bed. However she woke up this morning with heaviness in her epigastric area in concerned that she now has a pulmonary embolism. She called 911 and had EMS transported her to the emergency department. She continues to sat 98 to 99% on room air and is not tachycardic or having any acute abnormality with her vital signs. Timing/Duration: 1 Hour Severity: Moderate Associated Systoms: Chest Pain (Epigastric pressure); No Cough, No Diaphoresis, No Fever/Chills, No Headaches, No Loss of Appetite, No Malaise, No Nausea/Vomiting, No Rash, No Seizure; Shortness of Air; No Syncope, No Weakness Allergies and Home Medications Allergies Coded Allergies: Penicillins (Verified Allergy, Unknown, 01/08/16) doxycycline (Verified Allergy, Unknown, 01/08/16) latex (Verified Allergy, Unknown, 11/08/20) Patient Home Medication List Home Medication List Reviewed: Yes Loratadine (Loratadine) 10 Mg Tablet, 10 MG PO DAILY PRN for ALLERGY SYMPTOMS, (Reported) Entered as Reported by: ZENAIDA CHAU on 11/09/20 0819 Methylprednisolone (Methylprednisolone Dose Pack) 4 Mg Tab.ds.pk, 4 MG PO UD Prescribed by: CHRISTA ERICKSON on 11/10/20 1159 Review of Systems Review of Systems Constitutional: No chills, No dizziness, No fever EENTM: no symptoms reported Respiratory: see HPI; No hemoptysis; short of breath; No stridor, No wheezing Cardiovascular: see HPI Gastrointestinal: no symptoms reported Genitourinary: no symptoms reported Musculoskeletal: no symptoms reported Skin: no symptoms reported Psychiatric/Neurological: Anxiety Hematologic/Lymphatic: Denies Blood Clots; Easy Bruising Immunological/Allergic: no symptoms reported Past Prrpcab-Vngnih-Kbwijd Hx Immunizations Up To Date Tetanus Booster (TDap): Less than 5yrs Seasonal Allergies Seasonal Allergies: No Past Medical History Surgeries: Yes (tubes in ears) Abdominal, Adenoidectomy, Appendectomy, Ear Surgery, Gallbladder Respiratory: No Cardiac: No Neurological: No Reproductive Disorders: Yes ("precancerous cells uterus") Genitourinary: No Gastrointestinal: No Musculoskeletal: No Endocrine: Yes (gestational diabetes) HEENT: No Cancer: No Psychosocial: Yes Anxiety Integumentary: Yes (current rash on back/chest) Blood Disorders: No Family Medical History Cardiovascular disease 19 FATHER Diabetes mellitus 19 MOTHER (gestational dm) Neoplasm 19 MOTHER (cervical ca ) Psychosocial problem G8 BROTHER (2 brothers w/ autism) Visual disorder G8 BROTHER (brother blind ) Cancer, Other Conditions/Hx Physical Exam Vital Signs Vital Signs - First Documented 01/22/22 02:08 Temp 36.3 Pulse 83 Resp 18 B/P (MAP) 132/82 (99) Pulse Ox 98 O2 Delivery Room Air Capillary Refill : Height, Weight, BMI Height: 4'11" Weight: 128lbs. 6.0oz. 58.706473xc; 31.00 BMI Method:Stated General Appearance: No Apparent Distress, WD/WN HEENT: PERRL/EOMI, Pharynx Normal Neck: Full Range of Motion, Normal Inspection, Non Tender, Supple Respiratory: Chest Non Tender, Lungs Clear, Normal Breath Sounds, No Accessory Muscle Use, No Respiratory Distress Cardiovascular: Regular Rate, Rhythm, No Edema, No Gallop, No JVD, No Murmur, Normal Peripheral Pulses Gastrointestinal: Normal Bowel Sounds, No Pulsatile Mass, Non Tender, Soft Rectal: Deferred Extremity: Normal Capillary Refill, Normal Inspection, Non Tender, No Calf Tenderness, No Pedal Edema Neurologic/Psychiatric: Alert, Oriented x3, radiologic therapist II-XII Norm as Tested Skin: Normal Color, Warm/Dry Progress/Results/Core Measures Suspected Sepsis SIRS Temperature: Pulse: Respiratory Rate: Blood Pressure / Mean: Results/Orders My Orders Orders - BUD OMER MD Ed Iv/Invasive Line Start (01/22/22 01:56) Ct Angio Chest W (01/22/22 01:56) Pantoprazole Injection (Protonix Injecti (01/22/22 01:56) Iohexol Injection (Omnipaque 350 Mg/Ml 1 (01/22/22 02:00) Received Contrast (Hold Metformin- Contr (01/22/22 02:00) Ns (Ivpb) (Sodium Chloride 0.9% Ivpb Bag (01/22/22 02:00) Urine Bedside (01/22/22 02:03) Medications Given in ED Current Medications Medications Dose Ordered Sig/Shelia Route Start Time Stop Time Status Last Admin Dose Admin Iohexol 125 ml ONCE ONCE IV 01/22/22 02:00 01/22/22 02:02 DC 01/22/22 02:16 125 ML Sodium Chloride 100 ml ONCE ONCE IV 01/22/22 02:00 01/22/22 02:02 DC 01/22/22 02:17 100 ML Vital Signs/I&O 01/22/22 02:08 Temp 36.3 Pulse 83 Resp 18 B/P (MAP) 132/82 (99) Pulse Ox 98 O2 Delivery Room Air Capillary Refill : Progress Note #1: Progress Note Since she was just here a few hours prior will not repeat all of her lab work. Obtain CT scan of her chest as a CT angiogram to evaluate for possible abnorm ality. This will help evaluate for pulmonary embolism, pneumonia, infiltrate. Progress Note #2: Time: 02:09 Progress Note When the electromechanical technician was getting ready to take her to perform the CT angiogram to evaluate for possible blood clots or PE, the patient told her that she was upset and felt that I had accused her of just being anxious. I had asked her if she had been up all night worrying about her leg and if she had a blood clot. This is when the patient stated that she had been sleeping since taking tylenol earlier in the evening. She had woke up and had pressure in epigastric area and felt short of breath. She threatened to just leave and go to another hospital. Instead she spoke with her mother and then agreed to have the CT angiogram performed. Progress Note #3: Time: 03:[address] angiogram of the chest is negative for any pulmonary embolism. No acute abnormality seen. Reassured the patient and encouraged her to keep the order for ultrasound and call to get that scheduled in the morning. Her vital sign oxygen saturation have remained stable. Diagnostic Imaging Diagonstic Imaging: CT (angiography) Plain Films/CT/US/NM/MRI: chest Comments CT angio Hector of the chest with IV contrast showed no pulmonary embolism. Read by radiologist Dr. Pa Heart MD at [phone] and faxed at [phone] Reviewed: Reviewed [place] Study Departure Impression Primary Impression: Epigastric pressure Additional Impressions: Shortness of breath Elevated d-dimer Disposition: HOME, SELF-CARE Condition: Stable Departure-Patient Inst. Decision time for Depature: 03:23 Referrals: [facility] (PCP/Family) Primary Care Physician Patient Instructions: Shortness of Breath, Adult ED Add. Discharge Instructions: Call in the morning to schedule the ultrasound to evaluate your legs for any sign of blood clots. The CT scan of your chest tonight does not show any evidence of any blood clots or acute abnormality in your chest or upper abdomen. The blood thinner shot that you were given last night continues to thin your blood and treat for any possible DVT until the ultrasound is obtained so you could know if you needed to continue on any additional blood thinners. Establish care with a primary care provider of your choice. You should call the [facility] at [phone] and asked to be set up with the provider for establishing care. BUD OMER MD Jan 22, 2022 02:09
[2022-01-22 03:26] VITALS: BP 114/68
--- NOTE | 2022-01-22 05:41 | Diagnostic Imaging Report ---
PROCEDURE: CT angiography of the chest with contrast. TECHNIQUE: Multiple contiguous axial images were obtained through the chest after uneventful bolus administration of intravenous contrast. 3D reconstructed CTA MIP acquisitions were also performed. Auto Exposure Controls were utilized during the CT exam to meet ALARA standards for radiation dose reduction. INDICATION: Epigastric pain and pressure, anxiousness. FINDINGS: There is no intraluminal pulmonary arterial filling defect. No PE. The thoracic aorta patent, nonaneurysmal and nonacute. No edema, pneumonia, effusion or pneumothorax. No lung mass or adenopathy. No acute or suspect chest wall pathology. The visualized upper abdomen shows previous cholecystectomy with no acute appearing abnormality. IMPRESSION: Negative for PE or other acute abnormalities. Agree with preliminary. Dictated by: Dictated on workstation # [id number]
== END 2022-01-22 03:28 | disposition home or self-care (01) ==
LOC: EDUNIT# 01:43 → ER FS 01:49
DX: R06.02 Shortness of breath (principal); R10.13 Epigastric pain; R79.1 Abnormal coagulation profile; Z90.49 Acquired absence of other specified parts of digestive tract
CPT/HCPCS: 71275; 84703; Q9967

== ENCOUNTER → 2022-01-22 | Outpatient (CLI) | payer MEDICAID ==
--- NOTE | 2022-01-22 10:13 | Diagnostic Imaging Report ---
PROCEDURE: US Venous Lower Ext Nolan. TECHNIQUE: Multiple real-time grayscale images were obtained over the lower extremities in various projections, bilaterally. Additional duplex Doppler and color Doppler images were also obtained. INDICATION: Pain. FINDINGS: The femoropopliteal deep venous system bilaterally showed normal color Doppler blood flow, normal compressibility and normal waveforms. No deep vein thrombus and no visualized superficial thrombus. IMPRESSION: Normal negative bilateral lower extremity venous Doppler and ultrasound exam Dictated by: Dictated on workstation # [id number]
== END ==
LOC: RAD 09:30
PROVIDERS: ATTEND Family Medicine
DX: M79.651 Pain in right thigh (principal); R79.1 Abnormal coagulation profile; Z83.2 Family history of diseases of the blood and blood-forming organs and certain disorders involving the immune mechanism
CPT/HCPCS: 93970